=== PATIENT | male | born 1955 | race Caucasian/White ===

== ENCOUNTER → 2016-07-16 | Outpatient (CLI) | payer BC, OTHER ==
[~2016-07-16] MED LIST: ALLO300T2 PO; AMLO5TAB4 PO; ASPI81TA21 PO; ATOR-24 PO; CHOL20009 PO; GLUCTAB7 PO; LOSA100T65 PO; MELO7.5T5 PO; METF500T PO; OMEG10007 PO; OMEP20CA59 PO
[2016-07-16 14:31] LABS: ALT/SGPT 74 U/L (12-78); BLOOD UREA NITROGEN 14 mg/dl (7-18); BUN/CREATININE RATIO 16.8 (10-20); CALCIUM 9.5 mg/dl (8.5-10.1); CARBON DIOXIDE 24 mmol/L (21-32); CHLORIDE 101 mmol/L (98-107); CHOLESTEROL 253 mg/dl (0-200); CREATININE 0.82 mg/dl (0.60-1.40); GLUCOSE 185 mg/dl (70-99); POTASSIUM 4.1 mmol/L (3.5-5.1); SODIUM 136 mmol/L (136-145)
[2016-07-16 14:33] LABS: BASO % 0.6 %; BASO ABS # 0.03 K/uL (0-0.2); COMPLETE YES; EOS % 3.9 %; HEMATOCRIT 38.8 % (42-52); IG% 0.2 %; LYMPH % 16.6 %; LYMPH ABS # 0.84 K/uL (1.2-3.4); MEAN CELL VOLUME 91.3 fL (80-100); MEAN CORPUSCULAR HEMOGLOBIN 31.1 pg (25-34); MONO % 9.1 %; NEUT % 69.6 %; PLATELET COUNT 140 K/uL (130-400); RED BLOOD COUNT 4.25 M/uL (4.7-6.1); WHITE BLOOD COUNT 5.07 K/uL (4.8-10.8)
[2016-07-16 14:40] LABS: ESTIMATED AVERAGE GLUCOSE 146 mg/dl; HA1C FLAG Normal (Normal)
[2016-07-16 14:41] LABS: ALB/GLOB RATIO 1.3 (0.9-2); ALKALINE PHOSPHATASE 79 U/L (45-117); AST/SGOT 70 U/L (15-37); CHOLESTEROL/HDL RATIO 8.2; HDL CHOLESTEROL 31 mg/dl; TRIGLYCERIDES 1414 mg/dl (0-150)
== END | disposition home or self-care (01) ==
LOC: C.LABPBG 09:24
PROVIDERS: ATTEND Internal Medicine Geriatric Medicine
DX: M19.90 Unspecified osteoarthritis, unspecified site (principal); I10 Essential (primary) hypertension; E78.5 Hyperlipidemia, unspecified; D64.9 Anemia, unspecified; E55.9 Vitamin D deficiency, unspecified

== ENCOUNTER → 2017-06-06 | Outpatient (CLI) | payer OTHER ==
[2017-06-06 12:03] LABS: BASO ABS # 0.06 K/uL (0-0.2); COMPLETE YES; EOS % 2.9 %; HEMATOCRIT 39.8 % (42-52); IG% 0.3 %; LYMPH % 13.4 %; LYMPH ABS # 0.82 K/uL (1.2-3.4); MEAN CELL VOLUME 93.4 fL (80-100); MEAN CORPUSCULAR HEMOGLOBIN 31.7 pg (25-34); MEAN CORPUSCULAR HGB CONC 33.9 g/dl (32-36); MEAN PLATELET VOLUME 11.4 fL (7.4-10.4); MONO % 8.3 %; NEUT % 74.1 %; PLATELET COUNT 160 K/uL (130-400); RED BLOOD COUNT 4.26 M/uL (4.7-6.1); WHITE BLOOD COUNT 6.11 K/uL (4.8-10.8)
[2017-06-06 12:27] LABS: BLOOD UREA NITROGEN 16 mg/dl (7-18); BUN/CREATININE RATIO 17.7 (10-20); CALCIUM 9.2 mg/dl (8.5-10.1); CARBON DIOXIDE 24 mmol/L (21-32); CHLORIDE 102 mmol/L (98-107); GLUCOSE 239 mg/dl (70-99); POTASSIUM 4.2 mmol/L (3.5-5.1); SODIUM 134 mmol/L (136-145)
[2017-06-06 12:31] LABS: PROSTATE SPECIFIC ANTIGEN 0.867 ng/ml (0.000-4.000)
[2017-06-06 12:40] LABS: ESTIMATED AVERAGE GLUCOSE 154 mg/dl; HA1C FLAG Normal (Normal)
== END | disposition home or self-care (01) ==
LOC: C.LABPBG 10:10
PROVIDERS: ATTEND Internal Medicine Geriatric Medicine
DX: Z00.00 Encounter for general adult medical examination without abnormal findings (principal); I10 Essential (primary) hypertension; E78.5 Hyperlipidemia, unspecified; E11.9 Type 2 diabetes mellitus without complications

== ENCOUNTER 2018-07-15 11:08 | Inpatient (IN) ==
[2018-07-15] MEDS ORDERED: dilTIAZem HCl 5 MG/ML 5 ML VIAL IV STA (11:34)
[2018-07-15] MEDS ORDERED: dilTIAZem HCl 125 MG in DEXTROSE 5% 100 ML IV SCH ×2 (11:45→14:48)
[2018-07-15 11:50] LABS: Basophils # (auto) 0.03 K/uL (0-0.2); Basophils % (auto) 0.3 %; Eosinophils # (auto) 0.16 K/uL (0-0.5); Eosinophils % (auto) 1.6 %; Hematocrit (blood only) 39.5 % (42-52); Hemoglobin 13.4 g/dL (14.0-18.0); Immature Granulocytes # (auto) 0.03 K/uL (0.00-0.02); Immature Granulocytes % (auto) 0.3 %; Lymphocytes # (auto) 1.13 K/uL (1.2-3.4); Mean Corpuscular Hgb Conc 33.9 g/dL (32-36); Mean Corpuscular Volume 91.9 fL (80-100); Mean Platelet Volume 11.5 fL (7.4-10.4); Monocytes # (auto) 0.52 K/uL (0.11-0.59); Monocytes % (auto) 5.1 %; Neutrophils # (auto) 8.42 K/uL (1.4-6.5); Neutrophils % (auto) 81.7 %; Platelet Count 168 K/uL (130-400); RDW Coefficient of Variation 15.8 % (11.5-14.5); RDW Standard Deviation 52.9 fL (36.4-46.3); White Blood Count 10.29 K/uL (4.8-10.8)
--- NOTE | 2018-07-15 11:56 | XRay Report ---
XR chest 1V portable CLINICAL HISTORY: cough, sob dyspnea COMPARISON STUDY: No previous studies for comparison. FINDINGS: Moderate cardiomegaly. Prominent pulmonary vasculature. Diaphragms are smooth. Calcific angles are sharp. IMPRESSION: Mild congestive heart failure The above report was generated using voice recognition software. It may contain grammatical, syntax or spelling errors. Electronically signed by: Teodoro Majano M.D. 07/15/2018 11:54 AM
[2018-07-15 11:58] LABS: INR 1.1 (0.9-1.1); Partial Thromboplastin Time 27.1 Seconds (21.0-31.0); Prothrombin Time 10.8 Seconds (9.0-12.0)
[2018-07-15 12:04] LABS: BUN Creatinine Ratio 14.2 (10-20); Creatinine Clr Calc Pharmacy 101.6 ml/min; Est GFR (African American) 86.5; Est GFR (Non-African American) 74.7; Magnesium 1.8 mg/dl (1.8-2.4); Potassium 4.4 mmol/L (3.5-5.1)
[2018-07-15 12:21] LABS: Albumin Globulin Ratio 1.1 (0.9-2); Bilirubin,Total 1.4 mg/dl (0.2-1); Creatine Kinase MB 2.8 ng/ml (0.5-3.6); Globulin 3.6 gm/dl (2.5-4.0); Total Protein 7.6 gm/dl (6.4-8.2); Troponin I 0.08 ng/ml (0-0.045)
[2018-07-15] MEDS ORDERED: HEPARIN SOD (PORCINE) 1000 UNIT/ML 10 ML VIAL IV ONE (12:45)
[2018-07-15] MEDS ORDERED: HEPARIN STANDARD DEXTROSE 25,000 UNITS/500 ML IV SCH (12:48)
[2018-07-15] MEDS: HEPARIN STANDARD DEXTROSE 25,000 UNITS/500 ML IV SCH (12:56)
[2018-07-15] MEDS ORDERED: HEPARIN IV BOLUS 8,000 UNITS in SYRINGE 0 ML IV ONE (13:30)
--- NOTE | 2018-07-15 13:48 | History & Physical Report ---
Date of Service July 15, 2018 Assessment & Plan (1) Shortness of breath: 63 y/o M Hx HTN, HLD, DM II, gout, excess ETOH intake, GERD. Pt presents with a chief c/o SOB and chest tightness. He thought this might be due to a URI. He also reports a racing HR or palpitations intermittently for 2-3 months. On arrival to the ER, rapid flutter was noted on monitor. Initial labs are notable for a marginal troponin elevation. CXR is consistent with CHF. He denies CP, N/V, diaphoresis or lightheadedness. He is asymptomatic at rest at the time of admission and maintaining an adequate saturation on room air. 1) New flutter - may have been present for a few months intermittently. The pt is assigned to telemetry. He is placed on Diltiazem and Heparin. We ave ordered an echo and requested a cardiology consult. 2) CHF - clinically he is volume overloaded. We will provide a low dose of Lasix as this may help his SOB as we lower his HR. As above, an echo is ordered. We would currently presume that the overload is related to a persistetn rapid HR rather than a reduced EF. 3) elevated trop - likely again due to F and now CHF - trop will be trended and he is placed on full-dose anticoagulation, ASA, a statin. He states he had a normal stress a few yrs ago. he may benefit from an additional stress going forward. We will leave this to the discretio of cardiology at present. 4) DM II - placed on a SS 5) HTN/HLD - we are holding Losartan and Norvasc to allow for additional rate agents as needed. Will cont Atorvastatin. 6) Gout - cont Allopurinol Full code - full dose heparin Total time for this admit including review of labs, meds, imaging, records, EKG - discussion with pt and ER attending - 38 min Present on Admission?: Yes History of Present Illness Chief Complaint: Shortness of breath - palpitations Primary Care Provider: Wendi Alva, 63 y/o M Hx HTN, HLD, DM II, gout, excess ETOH intake, GERD. Pt presents with a chief c/o SOB and chest tightness. He thought this might be due to a URI. He also reports a racing HR or palpitations intermittently for 2-3 months. On arrival to the ER, rapid flutter was noted on monitor. Initial labs are notable for a marginal troponin elevation. CXR is consistent with CHF. He denies CP, N/V, diaphoresis or lightheadedness. He is asymptomatic at rest at the time of admission and maintaining an adequate saturation on room air. PMH: 1) HTN 2) HLD 3) Gout 4) B12 deficiency 5) GERD 6) DM II 7) Obese Surgical: limited to an appendectomy Social: 49 + pack history. Quit smoking 20 yrs ago. Drinks 5-10 beers daily. 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 Family: Father with history of CVA Mother with history of CAD/stents Allergies Allergy/AdvReac Type Severity Reaction Status Date / Time No Known Allergies Allergy Unverified 03/19/16 11:24 Home Medications Home Medications Medication Instructions Recorded Confirmed Type Dayquil 1 dose PO DAILY PRN 07/15/18 History allopurinol 300 mg PO DAILY 07/15/18 07/15/18 History amlodipine 5 mg PO DAILY 07/15/18 07/15/18 History aspirin 81 mg PO DAILY 07/15/18 07/15/18 History atorvastatin 40 mg PO DAILY 07/15/18 07/15/18 History cholecalciferol (vitamin D3) 0 unit PO 07/15/18 History [Vitamin D3] cyanocobalamin (vitamin B-12) 0 mcg PO 07/15/18 History [Vitamin B-12] glucosamine sulfate [Glucosamine] 500 mg PO TID 07/15/18 07/15/18 History guaifenesin [Mucinex] 600 mg PO Q12H PRN 07/15/18 07/15/18 History losartan 100 mg PO DAILY 07/15/18 07/15/18 History meloxicam 7.5 mg PO DAILY 07/15/18 07/15/18 History metformin 1 tab PO AMHS 07/15/18 07/15/18 History omega-3 fatty acids-fish oil [Fish 1 cap PO DAILY 07/15/18 07/15/18 History Oil] omeprazole 20 mg PO DAILY 07/15/18 07/15/18 History Past Med/Surg History Medical History Diabetes (Chronic) Hypercholesterolemia (Chronic) Hypertension (Chronic) Social History Current Living Situation: Significant Other Other Information That Helps Us Care for You: No Feels Safe at Home: Yes Safety Concerns: Feels Safe At This Time Smoking Status: Former smoker Hx Alcohol Use: No Hx Substance Use: No Beliefs That Will Affect Care: None Preferred Language: [place] Communication Ability: Effective Physical Exam 2 Vital Signs (Past 24 Hours): Last Vital Signs Temp 36.4 C L 07/15/18 11:11 Pulse 95 H 07/15/18 13:16 Resp 20 07/15/18 13:16 BP 129/96 07/15/18 13:16 Pulse Ox 93 07/15/18 13:16 Results & Data Diagnostic Findings CXR: vascular comgestion EKG: Flutter - variable rate with 2/1 block
[2018-07-15] MEDS ORDERED: ZOLPIDEM TARTRATE 5 MG TAB PO PRN (14:48)
[2018-07-15] MEDS ORDERED: MAGNESIUM HYDROXIDE SUSP 30 ML UDC PO PRN (14:48)
[2018-07-15] MEDS ORDERED: ONDANSETRON INJ 2 MG/ML 2 ML VIAL IV PRN (14:48)
[2018-07-15] MEDS ORDERED: POLYETHYLENE (MIRALAX) 17 GM PACK PO PRN (14:48)
[2018-07-15] MEDS ORDERED: NITROGLYCERIN SL 0.4 MG/TAB TAB SL PRN (14:48)
[2018-07-15] MEDS ORDERED: MoRPHine SULFATE 2 MG/ML CARP IV PRN (14:48)
[2018-07-15] MEDS ORDERED: ALUMINUM/MAGNESIUM SUSP 30 ML UDC PO PRN (14:48)
[2018-07-15] MEDS ORDERED: Heparin IV Standard *NO* Bolus ONE (14:48)
[2018-07-15] MEDS ORDERED: GLUCOSE 10 TABS/TUBE PO PRN (14:57)
[2018-07-15] MEDS ORDERED: CARBOHYDRATES FOR HYPOGLYCEMIA PO PRN (14:57)
[2018-07-15] MEDS ORDERED: GLUCAGON FOR INJ 1 MG VIAL IM PRN (14:57)
[2018-07-15] MEDS ORDERED: GLUCOSE 40% GEL 15 GM TUBE PO PRN (14:57)
[2018-07-15] MEDS ORDERED: DEXTROSE 50% 50 ML SYRINGE IV PRN (14:57)
[2018-07-15] MEDS ORDERED: LORazepam 1 MG/2 ML VIAL IV PRN (15:43)
[2018-07-15] MEDS ORDERED: FUROSEMIDE 20 MG in SYRINGE 0 ML IV ONE (16:45)
[2018-07-15] MEDS: THIAMINE HCL 100 MG TAB PO SCH (17:01)
[2018-07-15] MEDS: FOLIC ACID 1 MG TAB PO SCH (17:01)
[2018-07-15] MEDS: INSULIN ASPART 100 UNITS/ML 3 ML PEN SC SCH ×2 (17:02→22:09)
[2018-07-15 18:00] LABS: Influenza A virus by PCR Neg for Influ A (Neg); Influenza B virus by PCR Neg for Influ B (Neg)
--- NOTE | 2018-07-15 18:03 | Cardiology Consultation ---
Date of Consultation July 15, 2018 Assessment & Plan (1) Atrial flutter with rapid ventricular response: He presents with atrial flutter with a rapid heart rate, he is somewhat symptomatic but has felt run down since and is not seen a medical professional. He may have had this arrhythmia for that long, I suspect he has had it for longer than his recent worsening of shortness of breath which probably correlates with his heart failure. We need to get better rate control and I am going to increase his diltiazem, we also need to have him on an anticoagulant. He is currently on heparin, I would transition him to an oral anticoagulant fairly quickly but will leave him on heparin until workup is complete. I would favor Eliquis 5 mg twice daily.. (2) Elevated troponin I level: He does have an elevated troponin, it is most likely demand ischemia on the basis of his rapid heart rate however he may have underlying coronary artery disease. He does have coronary risk factors. I would continue to trend the troponins. In view of his chest discomfort (which is somewhat atypical but worrisome nevertheless) we may want to consider stress testing at some point. I would not consider catheterization as yet, echo pending. (3) Shortness of breath: He has had worsening of his shortness of breath recently but has felt run down since . He appears to be in mild congestive heart failure now. That could be on the basis of the arrhythmia and fluid retention or he may have a cardiomyopathy. He will need an echocardiogram to determine. I agree with diuresis. History of Present Illness Reason for Consultation: Atrial fibrillation, rapid heart rate, elevated troponin Attending Physician: Vipul Castillo MD History of Present Illness This is a very pleasant 63-year-old male who does have a history of hypertension , diabetes mellitus and GERD. He actually has not been feeling well since somewhere around , he has been feeling run down and lacking in energy but is not been having much in way of palpitations until recently. More recently he has developed shortness of breath and chest heaviness as well as palpitations and a rapid heart rate which has been more prominent over the last week or so. He came into the emergency room where he was noted to have atrial fibrillation with a rapid heart rate. He does have a history of alcohol use as well. He feels better now, he is no longer aware of his heart rate (although it is still somewhat elevated) and he has not had lightheadedness or dizziness. He is not having difficulty with chest tightness now. Allergies Allergy/AdvReac Type Severity Reaction Status Date / Time No Known Allergies Allergy Unverified 03/19/16 11:24 Home Medications Home Medications Medication Instructions Recorded Confirmed Type Dayquil 1 dose PO DAILY PRN 07/15/18 History allopurinol 300 mg PO DAILY 07/15/18 07/15/18 History amlodipine 5 mg PO DAILY 07/15/18 07/15/18 History aspirin 81 mg PO DAILY 07/15/18 07/15/18 History atorvastatin 40 mg PO DAILY 07/15/18 07/15/18 History cholecalciferol (vitamin D3) 0 unit PO 07/15/18 History [Vitamin D3] cyanocobalamin (vitamin B-12) 0 mcg PO 07/15/18 History [Vitamin B-12] glucosamine sulfate [Glucosamine] 500 mg PO TID 07/15/18 07/15/18 History guaifenesin [Mucinex] 600 mg PO Q12H PRN 07/15/18 07/15/18 History losartan 100 mg PO DAILY 07/15/18 07/15/18 History meloxicam 7.5 mg PO DAILY 07/15/18 07/15/18 History metformin 1 tab PO AMHS 07/15/18 07/15/18 History omega-3 fatty acids-fish oil [Fish 1 cap PO DAILY 07/15/18 07/15/18 History Oil] omeprazole 20 mg PO DAILY 07/15/18 07/15/18 History Patient History Medical History Diabetes (Chronic) Hypercholesterolemia (Chronic) Hypertension (Chronic) Social History Current Living Situation: Significant Other Other Information That Helps Us Care for You: No Feels Safe at Home: Yes Safety Concerns: Feels Safe At This Time Smoking Status: Former smoker Hx Alcohol Use: No Hx Substance Use: No Beliefs That Will Affect Care: None Preferred Language: Dutch Communication Ability: Effective Review of Systems Negative for lightheadedness, dizziness, presyncope or syncope. Palpitations and elevated heart rate as noted above. Moderate and progressive exertional dyspnea, atypical chest pain. No orthopnea or PND or peripheral edema. No GI complaints, no bleeding. No neurologic complaints such as TIA or stroke symptoms. Other systems negative. Physical Exam 2 Vital Signs (Past 24 Hours): Last Vital Signs Temp 36.7 C 07/15/18 15:37 Pulse 99 H 07/15/18 15:37 Resp 18 07/15/18 15:37 BP 127/86 07/15/18 15:37 Pulse Ox 93 07/15/18 15:37 Physical Exam: Constitutional: Alert, cooperative and in no distress. HEENT: Unremarkable Neck: No jugular venous distention, carotid pulses are irregular but otherwise normal and equal bilaterally without bruits. Pulmonary: Crackles at bases bilaterally. Cardiac: Irregular rhythm with no murmur, gallop or rub. Abdomen: Soft, nontender with normal bowel sounds. Extremities: No edema. Distal pulses intact. Neurologic: No focal findings. Gait is steady. Skin: No rash, ecchymoses or petechiae. Results & Data Diagnostic Findings ECG: On admission atrial flutter with a rapid ventricular response, rate 129 bpm Telemetry: Overall a rapid heart rate, slightly improved on intravenous diltiazem but still in the 110-120 bpm range Chest x-ray: Consistent with mild CHF
[2018-07-15] MEDS: dilTIAZem HCl 125 MG in DEXTROSE 5% 100 ML IV SCH ×2 (18:56→23:34)
--- NOTE | 2018-07-15 19:18 | Emergency Department Note ---
Entered by Hubert Bal acting as a scribe for Jorge Greenwood MD ED Provider Note CHIEF COMPLAINT: Shortness of breath/dyspnea HISTORY OF PRESENT ILLNESS: The patient is a 63 year old male who presents to the Emergency Room with complaints of worsening shortness of breath and dyspnea over the past week. The patient reports that he has been experiencing shortness of breath for about two months, but this week it has worsened. He reports that he has a productive cough , congestion, tightness in his chest and his heart occasionally races which he has experienced before. The patient also admits to experiencing fever, sweats, chills, and increased tiredness. He states that he has taken Dayquil and mucinex which alleviated some of his symptoms. The patient states that walking does not worsen his symptoms. He does report a family history of coronary disease. The patient reports he has a history of hypertension, high cholesterol , and diabetes and states he is on medication for all three. Pt denies LOC, headache, visual changes, neck pain, chest pain, nausea, vomiting , abdominal pain, back pain, melena, hematochezia, urinary symptoms, numbness, weakness, lymphadenopathy, rash, or other complaints. REVIEW OF SYSTEMS: See HPI for pertinent positives and negatives. A total of ten systems were reviewed and were otherwise negative. PMHx/PSHx: Hypertension, hypercholesterolemia, diabetes. SOCIAL HISTORY: Patient lives at home. PHYSICAL EXAM: GENERAL: Awake, alert, well-appearing, in no distress HENT: Normocephalic, atraumatic. Oropharynx unremarkable. EYES: Normal conjunctiva. Sclera non-icteric. NECK: Inspection normal. Non-tender. Supple. No nuchal rigidity. FROM. No masses. RESPIRATORY: Clear to auscultation. No wheezes. No rales. Normal respiratory effort. CARDIAC: Irregular and tachycardic. No murmurs. No rubs. Extremities warm and well perfused. Pulses equal. No JVD. GI: Soft, non-distended. No tenderness to palpation. No rebound or guarding. No masses. RECTAL: Deferred. MUSCULOSKELETAL: Atraumatic. Chest examination reveals no tenderness. The back is symmetrical on inspection without obvious abnormality. There is no CVA tenderness to palpation. No joint edema. LOWER EXTREMITIES: Calves are equal size bilaterally and non-tender. No edema. No discoloration. NEURO: Normal sensorium. No sensory or motor deficits noted. SKIN: No rash or jaundice noted. EMERGENCY DEPARTMENT COURSE: 1126: Past medical records reviewed. The patient was evaluated in room B10, and a complete history and physical examination were performed. 1416: I reviewed the patient's case with Dr. Castillo, [facility] Hospitalist. He will evaluate the patient for further management. MEDICAL DECISION MAKING: Triage Nursing notes reviewed and agree them. Additional history obtained from the family. The patient's history was concerning for shortness of breath. Differential diagnosis: Etiologies such as pneumonia, COPD, reactive airway disease, CHF, cardiac ischemia, pulmonary embolism, pneumothorax, musculoskeletal, infections, gastrointestinal, as well as others were entertained. Physical examination: As above. Tachycardia noted. ER treatment provided: IV Cardizem bolus and drip IV heparin On reassessment the patient felt better. Rate control achieved. The patient was still in a flutter. Diagnostic interpretation by me: The electrocardiogram consistent with rapid a flutter. The labs revealed an unremarkable CBC and chemistry panel. The patient had an elevated troponin. Imaging studies: Chest x-ray performed and revealed some mild congestive change. Consultation: A consultation was placed with the hospitalist. The case was discussed and diagnostics were reviewed. The patient was evaluated in the ER for further treatment. IMPRESSION: Atrial flutter with RVR, elevated troponin, CHF. PLAN: Admitted. CRITICAL CARE: I have personally spent greater than 30 minutes of critical care time in the direct management of this patient. This includes bedside care, interpretation of diagnostic studies, and testing, discussion with consultants, patient, and family members, and other required patient management activities. These minutes are in excess of all separately billable procedures. Impression & Plan Atrial flutter with rapid ventricular response, Elevated troponin I level Past Med/Surg History Medical History Diabetes (Chronic) Hypercholesterolemia (Chronic) Hypertension (Chronic) Social History Current Living Situation: Significant Other Other Information That Helps Us Care for You: No Feels Safe at Home: Yes Safety Concerns: Feels Safe At This Time Smoking Status: Former smoker Hx Alcohol Use: No Hx Substance Use: No Beliefs That Will Affect Care: None Preferred Language: Hungarian Communication Ability: Effective Results & Data Vital Signs Vital Signs - 24 hr 07/15/18 11:11 07/15/18 11:31 07/15/18 11:42 Temperature 36.4 C L Temperature Source Oral Sepsis Recent Fever Within 48 Hours No Sepsis New/Unexplained Change in Mental Status No Sepsis Action Taken by Nursing No Action Required Pulse Rate 129 H 125 H Pulse Rate [Left Finger] Pulse Rhythm [Left Finger] Pulse Strength [Left Finger] Respiratory Rate 20 14 Respiratory Effort / Characteristics Non-Labored Spontaneous Non-Labored Spontaneous Respiratory Depth Normal Normal Respiratory Pattern Regular Regular Blood Pressure 147/100 H 138/99 Blood Pressure [Left Arm] Blood Pressure Mean 115 112 Blood Pressure Mean [Left Arm] Blood Pressure Position [Left Arm] Pulse Oximetry 97 94 Pulse Oximetry [Left Index Finger] Oxygen Delivery Method Room Air Room Air Oxygen Delivery Method [Left Index Finger] 07/15/18 12:01 07/15/18 12:15 07/15/18 12:16 Temperature Temperature Source Sepsis Recent Fever Within 48 Hours Sepsis New/Unexplained Change in Mental Status Sepsis Action Taken by Nursing Pulse Rate 101 H 101 H 106 H Pulse Rate [Left Finger] Pulse Rhythm [Left Finger] Pulse Strength [Left Finger] Respiratory Rate 15 14 16 Respiratory Effort / Characteristics Respiratory Depth Respiratory Pattern Blood Pressure 124/85 114/84 Blood Pressure [Left Arm] Blood Pressure Mean 98 94 Blood Pressure Mean [Left Arm] Blood Pressure Position [Left Arm] Pulse Oximetry 93 93 93 Pulse Oximetry [Left Index Finger] Oxygen Delivery Method Oxygen Delivery Method [Left Index Finger] 07/15/18 12:30 07/15/18 12:46 07/15/18 13:01 Temperature Temperature Source Sepsis Recent Fever Within 48 Hours Sepsis New/Unexplained Change in Mental Status Sepsis Action Taken by Nursing Pulse Rate 95 H 99 H 99 H Pulse Rate [Left Finger] Pulse Rhythm [Left Finger] Pulse Strength [Left Finger] Respiratory Rate 14 15 12 Respiratory Effort / Characteristics Respiratory Depth Respiratory Pattern Blood Pressure 128/87 122/89 118/90 Blood Pressure [Left Arm] Blood Pressure Mean 100 100 99 Blood Pressure Mean [Left Arm] Blood Pressure Position [Left Arm] Pulse Oximetry 95 95 93 Pulse Oximetry [Left Index Finger] Oxygen Delivery Method Room Air Room Air Room Air Oxygen Delivery Method [Left Index Finger] 07/15/18 13:10 07/15/18 13:16 07/15/18 13:31 Temperature Temperature Source Sepsis Recent Fever Within 48 Hours Sepsis New/Unexplained Change in Mental Status Sepsis Action Taken by Nursing Pulse Rate 95 H 97 H Pulse Rate [Left Finger] Pulse Rhythm [Left Finger] Pulse Strength [Left Finger] Respiratory Rate 20 17 Respiratory Effort / Characteristics Non-Labored Spontaneous Respiratory Depth Normal Respiratory Pattern Regular Blood Pressure 129/96 143/109 H Blood Pressure [Left Arm] Blood Pressure Mean 107 120 Blood Pressure Mean [Left Arm] Blood Pressure Position [Left Arm] Pulse Oximetry 93 93 Pulse Oximetry [Left Index Finger] Oxygen Delivery Method Room Air Room Air Oxygen Delivery Method [Left Index Finger] 07/15/18 13:46 07/15/18 14:01 07/15/18 14:16 Temperature Temperature Source Sepsis Recent Fever Within 48 Hours Sepsis New/Unexplained Change in Mental Status Sepsis Action Taken by Nursing Pulse Rate 93 H 100 H 100 H Pulse Rate [Left Finger] Pulse Rhythm [Left Finger] Pulse Strength [Left Finger] Respiratory Rate 16 13 13 Respiratory Effort / Characteristics Respiratory Depth Respiratory Pattern Blood Pressure 130/96 133/101 H 133/101 H Blood Pressure [Left Arm] Blood Pressure Mean 107 111 Blood Pressure Mean [Left Arm] Blood Pressure Position [Left Arm] Pulse Oximetry 93 94 94 Pulse Oximetry [Left Index Finger] Oxygen Delivery Method Room Air Oxygen Delivery Method [Left Index Finger] 07/15/18 14:28 07/15/18 14:48 07/15/18 14:52 Temperature 36.4 C L Temperature Source Oral Sepsis Recent Fever Within 48 Hours Sepsis New/Unexplained Change in Mental Status Sepsis Action Taken by Nursing Pulse Rate Pulse Rate [Left Finger] 118 H Pulse Rhythm [Left Finger] Regular Pulse Strength [Left Finger] Normal Respiratory Rate 16 Respiratory Effort / Characteristics Non-Labored Non-Labored Spontaneous Respiratory Depth Normal Normal Respiratory Pattern Regular Regular Blood Pressure Blood Pressure [Left Arm] 156/102 H Blood Pressure Mean Blood Pressure Mean [Left Arm] 120 Blood Pressure Position [Left Arm] Sitting Pulse Oximetry 95 Pulse Oximetry [Left Index Finger] 95 Oxygen Delivery Method Room Air Room Air Oxygen Delivery Method [Left Index Finger] Room Air 07/15/18 15:37 Temperature 36.7 C Temperature Source Oral Sepsis Recent Fever Within 48 Hours Sepsis New/Unexplained Change in Mental Status Sepsis Action Taken by Nursing Pulse Rate Pulse Rate [Left Finger] 99 H Pulse Rhythm [Left Finger] Pulse Strength [Left Finger] Respiratory Rate 18 Respiratory Effort / Characteristics Respiratory Depth Respiratory Pattern Blood Pressure Blood Pressure [Left Arm] 127/86 Blood Pressure Mean Blood Pressure Mean [Left Arm] 99 Blood Pressure Position [Left Arm] Lying Pulse Oximetry 93 Pulse Oximetry [Left Index Finger] Oxygen Delivery Method Room Air Oxygen Delivery Method [Left Index Finger] Home Medications Current Medication List: was personally reviewed by me Laboratory Data Attestation: I reviewed the patient's lab results. Result diagrams: 07/15/18 11:30 07/15/18 11:30 Lab Results 07/15/18 07/15/18 07/15/18 Range/Units 11:30 11:30 11:30 WBC 10.29 (4.8-10.8) K/uL RBC 4.30 L (4.7-6.1) M/uL Hgb 13.4 L (14.0-18.0) g/dL Hct 39.5 L (42-52) % MCV 91.9 (80-100) fL MCH 31.2 (25-34) pg MCHC 33.9 (32-36) g/dL RDW Std Deviation 52.9 H (36.4-46.3) fL RDW Coeff of Jer 15.8 H (11.5-14.5) % Plt Count 168 (130-400) K/uL MPV 11.5 H (7.4-10.4) fL Immature Gran % (Auto) 0.3 % Neut % (Auto) 81.7 % Lymph % (Auto) 11.0 % [place] % (Auto) 5.1 % Eos % (Auto) 1.6 % Baso % (Auto) 0.3 % Immature Gran # (Auto) 0.03 H (0.00-0.02) K/uL Neut # (Auto) 8.42 H (1.4-6.5) K/uL Lymph # (Auto) 1.13 L (1.2-3.4) K/uL [place] # (Auto) 0.52 (0.11-0.59) K/uL Eos # (Auto) 0.16 (0-0.5) K/uL Baso # (Auto) 0.03 (0-0.2) K/uL PT 10.8 (9.0-12.0) Seconds INR 1.1 (0.9-1.1) APTT 27.1 (21.0-31.0) Seconds PTT Ratio 1.0 Sodium 133 L (136-145) mmol/L Potassium 4.4 (3.5-5.1) mmol/L Chloride 104 (98-107) mmol/L Carbon Dioxide 25 (21-32) mmol/L Anion Gap 4.0 (3-11) BUN 15 (7-18) mg/dl Creatinine 1.05 (0.6-1.4) mg/dl Est Cr Clr Drug Dosing 101.6 ml/min Est GFR ( Amer) 86.5 Est GFR (Non-Af Amer) 74.7 BUN/Creatinine Ratio 14.2 (10-20) Glucose 268 H (70-99) mg/dl POC Glucose (70-99) Calcium 9.0 (8.5-10.1) mg/dl Magnesium 1.8 (1.8-2.4) mg/dl Total Bilirubin 1.4 H (0.2-1) mg/dl AST 29 (15-37) U/L ALT 47 (12-78) U/L Alkaline Phosphatase 86 (45-117) U/L Total Creatine Kinase 118 (39-308) U/L CK-MB (CK-2) 2.8 (0.5-3.6) ng/ml CK/CKMB % Calc 2.4 (0-3.0) Troponin I 0.080 H* (0-0.045) ng/ml Total Protein 7.6 (6.4-8.2) gm/dl Albumin 4.0 (3.4-5.0) gm/dl Globulin 3.6 (2.5-4.0) gm/dl Albumin/Globulin Ratio 1.1 (0.9-2) TSH 1.760 (0.300-4.500) uIu/ml Influenza Type A (PCR) (Neg) Influenza Type B (PCR) (Neg) 07/15/18 07/15/18 07/15/18 Range/Units 15:18 16:52 17:20 WBC (4.8-10.8) K/uL RBC (4.7-6.1) M/uL Hgb (14.0-18.0) g/dL Hct (42-52) % MCV (80-100) fL MCH (25-34) pg MCHC (32-36) g/dL RDW Std Deviation (36.4-46.3) fL RDW Coeff of Jer (11.5-14.5) % Plt Count (130-400) K/uL MPV (7.4-10.4) fL Immature Gran % (Auto) % Neut % (Auto) % Lymph % (Auto) % [place] % (Auto) % Eos % (Auto) % Baso % (Auto) % Immature Gran # (Auto) (0.00-0.02) K/uL Neut # (Auto) (1.4-6.5) K/uL Lymph # (Auto) (1.2-3.4) K/uL [place] # (Auto) (0.11-0.59) K/uL Eos # (Auto) (0-0.5) K/uL Baso # (Auto) (0-0.2) K/uL PT (9.0-12.0) Seconds INR (0.9-1.1) APTT (21.0-31.0) Seconds PTT Ratio Sodium (136-145) mmol/L Potassium (3.5-5.1) mmol/L Chloride (98-107) mmol/L Carbon Dioxide (21-32) mmol/L Anion Gap (3-11) BUN (7-18) mg/dl Creatinine (0.6-1.4) mg/dl Est Cr Clr Drug Dosing ml/min Est GFR ( Amer) Est GFR (Non-Af Amer) BUN/Creatinine Ratio (10-20) Glucose (70-99) mg/dl POC Glucose 218 H (70-99) Calcium (8.5-10.1) mg/dl Magnesium (1.8-2.4) mg/dl Total Bilirubin (0.2-1) mg/dl AST (15-37) U/L ALT (12-78) U/L Alkaline Phosphatase (45-117) U/L Total Creatine Kinase (39-308) U/L CK-MB (CK-2) (0.5-3.6) ng/ml CK/CKMB % Calc (0-3.0) Troponin I 0.090 H* (0-0.045) ng/ml Total Protein (6.4-8.2) gm/dl Albumin (3.4-5.0) gm/dl Globulin (2.5-4.0) gm/dl Albumin/Globulin Ratio (0.9-2) TSH (0.300-4.500) uIu/ml Influenza Type A (PCR) Neg for Influ A (Neg) Influenza Type B (PCR) Neg for Influ B (Neg) Administered Medications Folic Acid (Folvite) 1 mg PO [facility] Stop: 08/14/18 15:59 Last Admin: 07/15/18 17:01 Dose: 1 mg Heparin Sodium/Dextrose (Heparin Sodium/Dextrose) 25,000 units in 500 mls @ 36 mls/hr IV .[id number] [facility]; Protocol Stop: 08/14/18 12:45 Last Admin: 07/15/18 12:56 Dose: 1,800 units/hr, 36 mls/hr Diltiazem HCl 125 mg/ Dextrose 125 mls @ 5 mls/hr IV .Q24H [facility]; Protocol Stop: 08/14/18 17:44 Last Admin: 07/15/18 18:56 Dose: 15 mg/hr, 15 mls/hr Insulin Aspart (Novolog Flexpen) [address] [facility] Stop: 08/14/18 16:29 Last Admin: 07/15/18 17:02 Dose: 2 units Thiamine HCl (Vitamin B-1) 100 mg PO [facility] Stop: 08/14/18 15:59 Last Admin: 07/15/18 17:01 Dose: 100 mg Discontinued Medications Diltiazem HCl (Cardizem) 10 mg IV NOW STA Stop: 07/15/18 11:35 Last Admin: 07/15/18 11:49 Dose: 10 mg Heparin Sodium (Porcine) (Heparin Iv Bolus) 8,000 units IV NOW ONE Stop: 07/15/18 12:46 Last Admin: 07/15/18 12:55 Dose: 8,000 units Heparin Sodium/Dextrose () 1 ea N/A NOW STA; Protocol Stop: 07/15/18 12:42 Last Admin: 07/15/18 16:46 Dose: Not Given Diltiazem HCl 125 mg/ Dextrose 125 mls @ 5 mls/hr IV .Q24H [facility]; Protocol Stop: 08/14/18 11:44 Last Titration: 07/15/18 16:47 Dose: 0 mg/hr, 0 mls/hr Titration: 07/15/18 16:47 Dose: 0 mg/hr, 0 mls/hr Admin: 07/15/18 11:50 Dose: 5 mg/hr, 5 mls/hr Diltiazem HCl 125 mg/ Dextrose 125 mls @ 10 mls/hr IV .[id number] [facility]; Protocol Stop: 08/14/18 14:47 Last Admin: 07/15/18 16:10 Dose: 10 mg/hr, 10 mls/hr Furosemide 20 mg/ Syringe 2 mls @ 4 mls/min IV TODAY@1645 ONE Stop: 07/15/18 16:46 Last Admin: 07/15/18 17:01 Dose: 4 mls/min Imaging Data Radiologist's Impression: Radiology results as stated below per my review and the radiologist's interpretation: XR chest 1V portable CLINICAL HISTORY: cough, sob dyspnea COMPARISON STUDY: No previous studies for comparison. FINDINGS: Moderate cardiomegaly. Prominent pulmonary vasculature. Diaphragms are smooth. Calcific angles are sharp. IMPRESSION: Mild congestive heart failure The above report was generated using voice recognition software. It may contain grammatical, syntax or spelling errors. Electronically signed by: Teodoro Majano M.D. 07/15/2018 11:54 AM ECG Data Attestation: I personally reviewed and interpreted this ECG as follows: Indication: SOB/dyspnea Rate (beats per minute): 120 Rhythm: atrial flutter (with cariable block at 125) Findings: no nonspecific-ST abn, no PVC and no ST elevation Blood Pressure Blood Pressure Findings: Normal blood pressure Blood Pressure Disposition: did not require urgent referral Discharge Plan Visit Data *Final* Discharge Date/Time: 07/15/18 14:16 Chief Complaint: Shortness of Breath/Dyspnea Stated Complaint: SOB ED Provider: Jorge Greenwood Discharge Problem: Atrial flutter with rapid ventricular response, Elevated troponin I level Patient Disposition: Admitted As Inpatient Discharge Instructions Interventions: ED Discharge Assessment Last Done: 07/15/18 14:16 The scribe's documentation has been prepared under my direction and personally reviewed by me in its entirety. I confirm that the note above accurately reflects all work, treatment, procedures, and medical decision making performed by me.
[2018-07-15 19:22] LABS: Partial Thromboplastin Ratio 2.8
[2018-07-15 19:39] LABS: Partial Thromboplastin Time 73.8 Seconds (21.0-31.0)
[2018-07-15] MEDS: ACETAMINOPHEN 325 MG TAB PO PRN (22:07)
[2018-07-16 02:10] LABS: Basophils # (auto) 0.05 K/uL (0-0.2); Basophils % (auto) 0.6 %; Eosinophils # (auto) 0.23 K/uL (0-0.5); Eosinophils % (auto) 2.8 %; Hematocrit (blood only) 38.1 % (42-52); Hemoglobin 12.9 g/dL (14.0-18.0); Immature Granulocytes # (auto) 0.02 K/uL (0.00-0.02); Immature Granulocytes % (auto) 0.2 %; Lymphocytes # (auto) 1.86 K/uL (1.2-3.4); Lymphocytes % (auto) 22.4 %; Mean Corpuscular Hgb Conc 33.9 g/dL (32-36); Mean Corpuscular Volume 91.6 fL (80-100); Mean Platelet Volume 11.9 fL (7.4-10.4); Monocytes # (auto) 0.56 K/uL (0.11-0.59); Monocytes % (auto) 6.8 %; Neutrophils # (auto) 5.57 K/uL (1.4-6.5); Neutrophils % (auto) 67.2 %; Platelet Count 165 K/uL (130-400); RDW Coefficient of Variation 15.9 % (11.5-14.5); RDW Standard Deviation 52.7 fL (36.4-46.3); Red Blood Count 4.16 M/uL (4.7-6.1); White Blood Count 8.29 K/uL (4.8-10.8)
[2018-07-16 02:25] LABS: Partial Thromboplastin Ratio 2.3
[2018-07-16 02:26] LABS: Partial Thromboplastin Time 58.7 Seconds (21.0-31.0)
[2018-07-16 02:39] LABS: BUN Creatinine Ratio 15.5 (10-20); Calcium 8.7 mg/dl (8.5-10.1); Creatinine Clr Calc Pharmacy 106.3 ml/min; Est GFR (African American) 91.8; Est GFR (Non-African American) 79.2; Magnesium 1.7 mg/dl (1.8-2.4); Potassium 3.5 mmol/L (3.5-5.1)
[2018-07-16] MEDS: HEPARIN STANDARD DEXTROSE 25,000 UNITS/500 ML IV SCH ×2 (03:54→18:10)
[2018-07-16] MEDS: THIAMINE HCL 100 MG TAB PO SCH (08:39)
[2018-07-16] MEDS: FOLIC ACID 1 MG TAB PO SCH (08:39)
[2018-07-16] MEDS: ASPIRIN 81 MG ECTAB PO SCH (08:39)
[2018-07-16] MEDS: INSULIN ASPART 100 UNITS/ML 3 ML PEN SC SCH ×4 (08:43→20:50)
[2018-07-16] MEDS ORDERED: ASPIRIN 81 MG ECTAB PO SCH (09:00)
[2018-07-16] MEDS: ATORVASTATIN 40 MG TAB PO SCH (09:49)
[2018-07-16] MEDS: MELOXICAM 7.5 MG TAB PO SCH (09:50)
[2018-07-16] MEDS: GLUCOSAMINE SULFATE 500 MG CAP PO SCH ×3 (09:50→20:49)
[2018-07-16] MEDS: ALLOPURINOL 300 MG TAB PO SCH (09:50)
[2018-07-16] MEDS: PANTOprazole 40 MG TAB PO SCH (09:51)
--- NOTE | 2018-07-16 11:05 | Cardiology Progress Note ---
Date of Service July 16, 2018 Assessment & Plan (1) Atrial flutter with rapid ventricular response: He presents with atrial flutter with a rapid heart rate, he is somewhat symptomatic but has felt run down since and had not seen a medical professional. He may have had this arrhythmia for that long, I suspect he has had it for longer than his recent worsening of shortness of breath which probably correlates with his heart failure. He is still on a diltiazem drip and received metoprolol succinate this morning, his heart rate is well controlled now. He is currently on heparin, I would transition him to an oral anticoagulant fairly quickly but will leave him on heparin until workup is complete. I would favor Eliquis as an oral anticoagulant. (2) Elevated troponin I level: He does have an elevated troponin, it is most likely demand ischemia on the basis of his rapid heart rate however the pattern is little bit worrisome for underlying coronary artery disease. He does have coronary risk factors. In view of his chest discomfort (which is somewhat atypical but worrisome nevertheless) and his somewhat unusual troponin trend (with an increase despite rate control and blood pressure control although the level was not terribly high ) I think a catheterization is warranted as I suspect he has significant underlying coronary disease. I discussed this with him and he is agreeable. We will try to set that up for this afternoon. (3) Shortness of breath: He has had worsening of his shortness of breath recently but has felt run down since . He appears to be in mild congestive heart failure now. That could be on the basis of the arrhythmia and fluid retention or he may have a cardiomyopathy. He had an echocardiogram but the result is pending. I agree with diuresis. Subjective He feels better today, although he is still having little shortness of breath. No palpitations. Physical Exam 2 Vital Signs (Past 24 Hours): Last Vital Signs Temp 36.4 C L 07/16/18 06:33 Pulse 71 07/16/18 06:33 Resp 17 07/16/18 06:33 BP 122/80 07/16/18 06:33 Pulse Ox 90 07/16/18 06:33 Physical Exam: Constitutional: Alert, cooperative and in no distress. Pulmonary: Clear to auscultation bilaterally. Cardiac: Irregular rhythm with no murmur, gallop or rub. Abdomen: Soft, nontender with normal bowel sounds. Extremities: No edema. Skin: No rash, ecchymoses or petechiae. Results & Data Diagnostic Findings Telemetry: He remains in atrial flutter, however his rate is well controlled on his current regimen. Electrocardiogram: His ECG this morning does not show any acute change. T wave abnormalities are little bit difficult to discern due to his atrial flutter.
[2018-07-16] MEDS: ACETAMINOPHEN 325 MG TAB PO PRN (15:35)
--- NOTE | 2018-07-16 18:33 | Family Medicine Progress Note ---
Date of Service July 16, 2018 Assessment & Plan (1) Atrial flutter with rapid ventricular response: Mr. Kaur is a 63-year-old male with a past medical history of hypertension, hyperlipidemia, type 2 diabetes mellitus, gout, GERD, 5-10 beer per day alcohol intake who presents with 2-3 months of racing heartbeat and new shortness of breath and chest tightness without chest pain. He was in atrial flutter on admission. Atrial flutter with RVR Clinically having symptoms of fluttering and racing heart for several months Cardiology consulted - Diltiazem gtt, + metoprolol this AM - On heparin gtt pending evaluation and cath as below, recommend conversion to oral agent likely eliquis 5mg BID following. Elevated troponin Initial troponin of 0.06 peaking at 0.115 now downtrending x2 to .08 suggestive of demand ischemia in the setting of flutter - Given risk factors and presentation cardiac cath recommended. Pending cath tonight/tomrrow Acute on chronic systolic HF, Shortness of Breath Moderate cardiomegaly and prominent pulmonary vasculature noted on chest x-ray - Echo: LVEF 35-40%, LV hypokinesis, RA dilation, mod-sev MR, IVC mild dilation -Recommend diuresis, s/p one dose of lasix with 1L of UOP. Recommend Lasix 20mg IV daily-BID titrated to UOP. 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 Glucose checks before meals/at bedtime. 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 held on admit pending rate control agent management per cardiology Continue atorvastatin 40 mg, ASA 81 mg daily Gout Continue allopurinol Alcohol abuse, 5-10 beers daily intake Denies history of withdrawal, seizures, DTs +thiamine, folic acid, as needed lorazepam DVT prophylaxis: Heparin GTT pending cardiology eval (2) Heart failure with reduced ejection fraction: (3) Elevated troponin I level: (4) Shortness of breath: (5) Diabetes: (6) Hypercholesterolemia: (7) Hypertension: (8) DVT prophylaxis: Supervising Physician Co-Signing Physician Notes Resident Physician Supervision Note: I independently interviewed and examined the patient and verified the carlson history and physical, reviewed labs and image studies, discussed the case with the resident Dr. Hill and agree with the findings and care plan. Subjective Mr. Kaur reports that he feels better today, but is still having some shortness of breath and chest tightness improved from yesterday. He has had 2- 3 months of a racing heartbeat, is still present this morning. Denies chest pain. Denies nausea, vomiting, diaphoresis, dizziness. Denies lightheadedness , dizziness, syncope. Denies weakness, numbness. Denies skin changes.Endorses a mild bilateral frontal headache which is tense in his forehead but not very bothersome. He has a history of type 2 diabetes. He is a former [id number] tobacco use history, no tobacco use in the last 20 years. Physical Exam 2 Vital Signs (Past 24 Hours): Last Vital Signs Temp 36.4 C L 07/16/18 16:09 Pulse 104 H 07/16/18 16:09 Resp 20 07/16/18 16:09 BP 136/84 07/16/18 16:09 Pulse Ox 94 07/16/18 16:09 Physical Exam: General: A&Ox3. NAD. Cooperative. HEENT: Atraumatic, normocephalic. Pulm: CTAB A&P. -wheezes, -rales, -rhonchi. Symmetrical chest rise. No increase work of breathing. No respiratory distress. Cardiac: Irregular, -mrg. PT/DP/Radial pulse intact and symmetrical Extremities: no edema Results & Data Laboratory Results Abnormal lab results 07/15/18 07/15/18 07/16/18 Range/Units 18:52 22:05 01:47 RBC 4.16 L (4.7-6.1) M/uL Hgb 12.9 L (14.0-18.0) g/dL Hct 38.1 L (42-52) % RDW Std Deviation 52.7 H (36.4-46.3) fL RDW Coeff of Jer 15.9 H (11.5-14.5) % MPV 11.9 H (7.4-10.4) fL APTT 73.8 H* (21.0-31.0) Seconds Sodium (136-145) mmol/L Glucose (70-99) mg/dl POC Glucose 247 H (70-99) Magnesium (1.8-2.4) mg/dl Troponin I (0-0.045) ng/ml 07/16/18 07/16/18 07/16/18 Range/Units 01:47 01:47 01:47 RBC (4.7-6.1) M/uL Hgb (14.0-18.0) g/dL Hct (42-52) % RDW Std Deviation (36.4-46.3) fL RDW Coeff of Jer (11.5-14.5) % MPV (7.4-10.4) fL APTT 58.7 H* (21.0-31.0) Seconds Sodium 133 L (136-145) mmol/L Glucose 247 H (70-99) mg/dl POC Glucose (70-99) Magnesium 1.7 L (1.8-2.4) mg/dl Troponin I 0.115 H* (0-0.045) ng/ml 07/16/18 07/16/18 07/16/18 Range/Units 07:29 09:16 11:07 RBC (4.7-6.1) M/uL Hgb (14.0-18.0) g/dL Hct (42-52) % RDW Std Deviation (36.4-46.3) fL RDW Coeff of Jer (11.5-14.5) % MPV (7.4-10.4) fL APTT (21.0-31.0) Seconds Sodium (136-145) mmol/L Glucose (70-99) mg/dl POC Glucose 247 H 286 H (70-99) Magnesium (1.8-2.4) mg/dl Troponin I 0.060 H* (0-0.045) ng/ml 07/16/18 07/16/18 Range/Units 12:21 16:21 RBC (4.7-6.1) M/uL Hgb (14.0-18.0) g/dL Hct (42-52) % RDW Std Deviation (36.4-46.3) fL RDW Coeff of Jer (11.5-14.5) % MPV (7.4-10.4) fL APTT (21.0-31.0) Seconds Sodium (136-145) mmol/L Glucose (70-99) mg/dl POC Glucose 282 H 286 H (70-99) Magnesium (1.8-2.4) mg/dl Troponin I (0-0.045) ng/ml Medications Administered Current Inpatient Medications Acetaminophen (Tylenol) 650 mg PO Q4H PRN PRN Reason: Pain or Fever Stop: 08/14/18 14:47 Last Admin: 07/16/18 15:35 Dose: 650 mg Al Hydrox/Mg Hydrox/Simethicone (Maalox) 15 ml PO Q4H PRN PRN Reason: Dyspepsia Stop: 08/14/18 14:47 Allopurinol (Zyloprim) 300 mg PO DAILY [facility] Stop: 08/15/18 08:59 Last Admin: 07/16/18 09:50 Dose: 300 mg Aspirin (Ecotrin Ectab) 81 mg PO QAM [facility] Stop: 08/15/18 08:59 Last Admin: 07/16/18 08:39 Dose: 81 mg Atorvastatin Calcium (Lipitor) 40 mg PO DAILY [facility] Stop: 08/15/18 08:59 Last Admin: 07/16/18 09:49 Dose: 40 mg Dextrose (Dextrose 50%) 25 - 50 ml IV UD PRN; Protocol PRN Reason: Hypoglycemia Protocol Stop: 08/14/18 14:56 Folic Acid (Folvite) 1 mg PO QAM [facility] Stop: 08/14/18 15:59 Last Admin: 07/16/18 08:39 Dose: 1 mg Glucagon (Glucagen) 1 mg IM UD PRN; Protocol PRN Reason: Hypoglycemia Protocol Stop: 08/14/18 14:56 Glucosamine Sulfate (Glucosamine Sulfate) 500 mg PO TID [facility] Stop: 08/15/18 08:59 Last Admin: 07/16/18 15:32 Dose: 500 mg Glucose (Glucose 40%) 15 - 30 gm PO UD PRN; Protocol PRN Reason: Hypoglycemia Protocol Stop: 08/14/18 14:56 Glucose (Dex4 Glucose) 4 - 8 tabs PO UD PRN; Protocol PRN Reason: Hypoglycemia Protocol Stop: 08/14/18 14:56 Heparin Sodium/Dextrose (Heparin Sodium/Dextrose) 25,000 units in 500 mls @ 34 mls/hr IV .[id number] AINSLEY; Protocol Stop: 08/14/18 12:45 Last Admin: 07/16/18 18:10 Dose: 1,700 units/hr, 34 mls/hr Lorazepam (Ativan) 1 mg in 2 mls @ 0.5 mls/min IV Q4H PRN PRN Reason: Alcohol Withdrawal Stop: 08/14/18 15:42 Insulin Aspart (Novolog Flexpen) 0 units SC ACHS [facility] Stop: 08/14/18 16:29 Last Admin: 07/16/18 18:11 Dose: 12 units Insulin Glargine (Lantus) 7 units SC BID [facility] Stop: 08/15/18 20:59 Magnesium Hydroxide (Milk Of Magnesia) 30 ml PO Q12H PRN PRN Reason: Constipation Stop: 08/14/18 14:47 Meloxicam (Mobic) 7.5 mg PO DAILY [facility] Stop: 08/15/18 08:59 Last Admin: 07/16/18 09:50 Dose: 7.5 mg Miscellaneous (Carbohydrates For Hypoglycemia) 15 - 30 gm PO UD PRN PRN Reason: Hypoglycemia Treatment Stop: 08/14/18 14:56 Morphine Sulfate (Morphine Sulfate) 2 mg IV Q30M PRN PRN Reason: Chest Pain Stop: 07/29/18 14:47 Nitroglycerin (Nitrostat) 0.4 mg SL UD PRN PRN Reason: Chest Pain Stop: 08/14/18 14:47 Ondansetron HCl (Zofran) 4 mg IV Q6H PRN PRN Reason: Nausea Stop: 08/14/18 14:47 Pantoprazole Sodium (Protonix) 40 mg PO DAILY [facility] Stop: 08/15/18 08:59 Last Admin: 07/16/18 09:51 Dose: 40 mg Polyethylene Glycol (Miralax Powder Packet) 17 gm PO DAILY PRN PRN Reason: Constipation Stop: 08/14/18 14:47 Thiamine HCl (Vitamin B-1) 100 mg PO QAM [facility] Stop: 08/14/18 15:59 Last Admin: 07/16/18 08:39 Dose: 100 mg Resident Activity Tracking Resident Involvement: Resident Care Provided Care Provided: Adult Hospital Medicine
[2018-07-16] MEDS: INSULIN GLARGINE 100 UNIT/ML VIAL SC SCH (20:51)
[2018-07-17 06:10] LABS: Partial Thromboplastin Ratio 1.9
[2018-07-17 06:14] LABS: Partial Thromboplastin Time 50.2 Seconds (21.0-31.0)
[2018-07-17] MEDS ORDERED: LIDOCAINE HCL 1% 20 ML VIAL ONE (07:29)
[2018-07-17] MEDS: INSULIN ASPART 100 UNITS/ML 3 ML PEN SC SCH ×3 (07:50→17:18)
[2018-07-17 07:52] LABS: Basophils # (auto) 0.03 K/uL (0-0.2); Basophils % (auto) 0.5 %; Eosinophils # (auto) 0.23 K/uL (0-0.5); Eosinophils % (auto) 3.9 %; Hemoglobin 12.3 g/dL (14.0-18.0); Immature Granulocytes # (auto) 0.01 K/uL (0.00-0.02); Immature Granulocytes % (auto) 0.2 %; Lymphocytes % (auto) 16.8 %; Mean Corpuscular Hgb Conc 33.2 g/dL (32-36); Mean Corpuscular Volume 91.6 fL (80-100); Mean Platelet Volume 12.3 fL (7.4-10.4); Monocytes # (auto) 0.47 K/uL (0.11-0.59); Monocytes % (auto) 7.9 %; Neutrophils # (auto) 4.23 K/uL (1.4-6.5); Neutrophils % (auto) 70.7 %; Platelet Count 146 K/uL (130-400); RDW Coefficient of Variation 15.9 % (11.5-14.5); RDW Standard Deviation 53.1 fL (36.4-46.3); Red Blood Count 4.04 M/uL (4.7-6.1); White Blood Count 5.97 K/uL (4.8-10.8)
[2018-07-17] MEDS: PANTOprazole 40 MG TAB PO SCH (07:52)
[2018-07-17] MEDS: ALLOPURINOL 300 MG TAB PO SCH (07:52)
[2018-07-17] MEDS: ATORVASTATIN 40 MG TAB PO SCH (07:52)
[2018-07-17] MEDS: GLUCOSAMINE SULFATE 500 MG CAP PO SCH ×2 (07:52→16:03)
[2018-07-17 07:53] LABS: BUN Creatinine Ratio 11.8 (10-20); Calcium 8.8 mg/dl (8.5-10.1); Creatinine Clr Calc Pharmacy 102.3 ml/min; Est GFR (African American) 88.6; Est GFR (Non-African American) 76.4; Potassium 3.9 mmol/L (3.5-5.1)
[2018-07-17] MEDS: MELOXICAM 7.5 MG TAB PO SCH (07:53)
[2018-07-17] MEDS: ASPIRIN 81 MG ECTAB PO SCH (07:54)
[2018-07-17] MEDS: FOLIC ACID 1 MG TAB PO SCH (07:54)
[2018-07-17] MEDS: THIAMINE HCL 100 MG TAB PO SCH (07:54)
[2018-07-17] MEDS: INSULIN GLARGINE 100 UNIT/ML VIAL SC SCH (07:55)
[2018-07-17] MEDS ORDERED: NITROGLYCERIN/D5W 100MCG/ML 20ML SYR ONE (07:57)
[2018-07-17] MEDS ORDERED: fentaNYL citrate 100 MCG/2 ML VIAL ONE (07:57)
[2018-07-17] MEDS ORDERED: MIDAZOLAM HCL 1 MG/ML 2ML VIAL ONE (07:57)
[2018-07-17] MEDS ORDERED: NiCARDipine HCL INJ 2.5 MG/ML 10 ML AMP ONE (07:57)
[2018-07-17] MEDS ORDERED: HEPARIN (PORCINE) 1000 UNIT/ML 10 ML (CATH LAB USE ONLY) ONE (07:57)
--- NOTE | 2018-07-17 08:13 | Pre Anesthesia Assessment ---
Date of Service July 17, 2018 Pre Sedation Assessment Vital Signs Temp Pulse Resp BP Pulse Ox 07/17/18 07:17 36.6 C 115 H 20 140/92 94 07/17/18 03:11 36.6 C 119 H 18 148/93 H 92 07/16/18 23:34 36.5 C 102 H 22 114/79 95 07/16/18 19:38 36.4 C L 96 H 20 135/93 94 07/16/18 16:09 36.4 C L 104 H 20 136/84 94 07/16/18 11:16 36.8 C 71 18 117/73 92 Cardiovascular + tachycardic Respiratory + respiratory effort normal Pre-Sedation Airway Assessment Smoking Status: Former smoker Hx Sleep Apnea: No Hx Difficult Intubation: No Short, Thick Neck: No Thyromental Distance: > or= 3.5 Finger Breadths Oral Cavity: + WNL Mallampati Class: III ASA: ASA3 Procedure Planning Contraindications for Sedation: none Current Medications Reviewed: Yes Notes The planned sedation has been discussed with the patient. Informed Consent was obtained. I have identified the patient, determined the appropriateness of sedation and have assessed the patient immediately prior to the procedure. All medicine(s) and interventions are by my order.
--- NOTE | 2018-07-17 08:46 | Cardiac Catheterization ---
Cardiac Cath Procedure: Brief Procedure Date July 17, 2018 Pre-Procedure Diagnosis Pre-Procedure Diagnosis: Non STEMI AUC Score AUC Score: 8 Post-Procedure Diagnosis Post-Procedure Diagnosis: Normal Coronary Arteries Procedure(s) Performed Procedure(s) Performed: Coronary Angiography and Left Heart Cath Supervisor [employer] Nick Hernandez MD [employer] Worker(s) Tarah Estimated Blood Loss Estimated Blood Loss: None Medication(s) Medication(s): Heparin, Morphine, Nicardipine, Nitroglycerin and Versed Preliminary Findings Normal coronary arteries. Normal left ventricular end-diastolic pressure. Recommendations Recommendations: None Specimens Specimens: None Procedural Complication(s) None Disposition PCU
[2018-07-17] MEDS ORDERED: APIXABAN 5 MG TABLET PO SCH (10:00)
[2018-07-17] MEDS ORDERED: METOPROLOL SUCC 50MG EXT REL TAB PO ONE (14:00)
--- NOTE | 2018-07-17 14:26 | Cardiology Progress Note ---
Date of Service July 17, 2018 Assessment & Plan (1) Atrial flutter with rapid ventricular response: He presents with atrial flutter with a rapid heart rate, he is somewhat symptomatic but has felt run down since and had not seen a medical professional. He may have had this arrhythmia for that long, I suspect he has had it for longer than his recent worsening of shortness of breath which probably correlates with his heart failure. His heart rate was well controlled on diltiazem, that has now been discontinued. He is currently on Eliquis as an anticoagulant. I would use beta blockade as rate control if possible, I would try metoprolol succinate 50 mg. I will see him as an outpatient and we can titrate that and I will also plan on cardioversion if he remains in atrial fibrillation. I have scheduled him for an office visit on August 04, I placed that visit in his discharge information (2) Elevated troponin I level: He did have an elevated troponin, however he has normal coronary arteries. Apparently that was due to oxygen supply and demand mismatch. (3) Shortness of breath: He has had worsening of his shortness of breath recently but has felt run down since . He appears to be in mild congestive heart failure this admission and he does have some mild left ventricular dysfunction. That could be on the basis of the arrhythmia and fluid retention. I suspect with rate control this will not be an issue but we will have to monitor his left ventricular function. Subjective He is feeling well today, no shortness of breath, no palpitations. Physical Exam 2 Vital Signs (Past 24 Hours): Last Vital Signs Temp 37.2 C 07/17/18 09:31 Pulse 118 H 07/17/18 10:08 Resp 19 07/17/18 10:08 BP 124/73 07/17/18 10:08 Pulse Ox 92 07/17/18 10:08 Physical Exam: Constitutional: Alert, cooperative and in no distress. Pulmonary: Clear to auscultation bilaterally. Cardiac: Irregular rhythm with no murmur, gallop or rub. Abdomen: Soft, nontender with normal bowel sounds. Extremities: No edema. Skin: No rash, ecchymoses or petechiae. Results & Data Diagnostic Findings Telemetry: Atrial fibrillation is somewhat rapid heart rate, currently not on medications.
[2018-07-17] MEDS ORDERED: INSULIN GLARGINE 100 UNIT/ML VIAL SC SCH (21:00)
--- NOTE | 2018-07-17 21:39 | Discharge Summary ---
Date of Service July 17, 2018 Admission HPI Per Admitting Provider 63 y/o M Hx HTN, HLD, DM II, gout, excess ETOH intake, GERD. Pt presents with a chief c/o SOB and chest tightness. He thought this might be due to a URI. He also reports a racing HR or palpitations intermittently for 2-3 months. On arrival to the ER, rapid flutter was noted on monitor. Initial labs are notable for a marginal troponin elevation. CXR is consistent with CHF. He denies CP, N/V, diaphoresis or lightheadedness. He is asymptomatic at rest at the time of admission and maintaining an adequate saturation on room air. PMH: 1) HTN 2) HLD 3) Gout 4) B12 deficiency 5) GERD 6) DM II 7) Obese Surgical: limited to an appendectomy Social: 50 + pack history. Quit smoking 20 yrs ago. Drinks 5-10 beers daily. 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 Family: Father with history of CVA Mother with history of CAD/stents Principal Diagnosis New Onset Atrial Flutter Discharge Exam General: A&Ox3. NAD. Cooperative. HEENT: Atraumatic, normocephalic. Pulm: CTAB A&P. -wheezes, -rales, -rhonchi. Symmetrical chest rise. No increased work of breathing. No respiratory distress. Cardiac: Irregularly irregular, -mrg. No JVD. Abdominal: Nontender, nondistended, soft. BS present. Extremities: No edema present. Discharge Data Allergies Allergy/AdvReac Type Severity Reaction Status Date / Time No Known Allergies Allergy Unverified 03/19/16 11:24 Consultations 07/15/18 13:17 ED Decision to Admit Stat 07/15/18 14:48 Consult Cardiology Routine Procedures Performed Operation Date: 07/17/18 08:00 Actual Procedures p Cath, Left with Cors and Vent - Alverto Hernandez MD s Cineradiography w/Routine Exam - Alverto Hernandez MD Ordered Studies 07/17/18 07:18 CL Cath Imgs for PACS use only Routine Hospital Course (1) Atrial flutter with rapid ventricular response: Mr. Kaur is a 63-year-old male with a past medical history of hypertension, hyperlipidemia, type 2 diabetes mellitus, gout, GERD, 5-10 beer per day alcohol intake who presents with 2-3 months of racing heartbeat and new shortness of breath and chest tightness without chest pain. He was in atrial flutter on admission. He reported to have clinical symptoms of atrial flutter including tachycardia and palpitations for several months. He was in Aflutter on admit. Cardiology was consulted and he was placed on diltiazem drip and metoprolol with good rate control. He had elevated troponins on admission which peaked at .115, given his risk factors he underwent cardiac cath to evaluate ischemic causes. No coronary disease was found, and he was converted to rate control with metoprolol 50mg XL , anticoagulated with eliquis 5mg BID, and discharged to followup with his PCP and cardiology. (2) Heart failure with reduced ejection fraction: Following admission Mr. Kaur was noted to have moderate cardiomegaly and prominent pulmonary vasculature noted on chest x-ray. Echo showed LVEF 35-40%, LV hypokinesis, RA dilation, mod-sev MR, IVC mild dilation. He was diuresed with a single 20mg dose of Lasix with good urine output. He was point lay ira for discharge following this dose and was discharged with close followup to cardiology. (3) Elevated troponin I level: He had an initial troponin of 0.06 peaking at 0.115 which downtrending x2 to .08 suggestive of demand ischemia in the setting of flutter. Given risk factors and presentation cardiac cath was performed as noted above and which was negative. (4) Shortness of breath: Mr. Kaur was experiencing shortness of breath on admission. He was treated for CHF and Afib as noted above and had resolution of his shortness of breath by time of discharge. 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 His serum glucose ran in the high 200s and he was stabilized on glargine 14units daily and SSI. Last A1C in December was 6.9%. Recommend recheck and followup as outpatient, discharged to followup with his PCP. (6) Hypercholesterolemia: Atorvastatin 40mg daily was maintained during admission. 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 His atorvastatin 40 mg, ASA 81 mg daily were continued. He was discharged on metoprolol 50mg XR and losartan 100mg PO daily. (8) DVT prophylaxis: Heparin GTT was initially maintained until his cath was performed. Afterwards he was converted to apixaban 5mg PO BID. (9) Alcohol abuse: Mr. Kaur reported a 5-10 beer daily intake. He denied history of withdrawal, seizures, and DTs. He was given thiamine, folic acid, and lorazepam PRN was added although not needed. He experienced no symptoms of withdrawal during admission. Recommend followup and alcohol abuse counseling with PCP as outpatient. (10) History of gout: Allopurinol was continued during admission with no evidence of a gout flare. Total Time Total Time Spent Total Time Spent (In Minutes): 30 Discharge Plan Discharge Items Patient Disposition: Home - Self-Care Reason For Visit: A FLUTTER. ELEVATED TROP, CHF Discharge Diagnosis: Atrial Flutter with RVR and demand ischemia Condition: Good Discharge Goals: Improve disease control and Improve function Activity: Resume your previous activity Non-emergency contact: Primary Care Provider and Vp Ancillary Call non-emergency contact if: you have any medication questions, your symptoms worsen, your pain is not controlled, your pain is worsening and your pain is unusual for you Follow-up/Referrals: Edis Mckeon MD [Physician] - 08/04/18 12:15 pm (Please, follow up at [facility]'s Cardiology Office with Dr. Mckeon on FridayAugust 04 at 12:15 pm. *This office is located in [address] of [facility] - big building next to this hospital. If you need to change this appointment, call the office at [phone].) Wendi Alva, [Primary Care Provider] - 07/29/18 10:20 am (Please, follow up at Dr. Alva's office with her associate, Joao ESPINOZA, on FridayJuly 29 at 10:20 am. *This office is located next to [facility]. If you need to change this appointment, call the office at [phone]) Diet: Carb Consistent or DM2 Addtl Provider Instructions: You were seen in the hospital for a racing heartbeat and shortness of breath. A heart rhythm known as atrial flutter was present during your hospital admission. Your cardiac catheterization was normal. Medication changes have been made as noted below: Please stop taking amlodipine. This has been replaced with metoprolol. You have been prescribed a new heart medication, metoprolol succinate. Please take metoprolol succinate 50 mg daily in the morning. He has been prescribed a anticoagulant, Eliquis. Please take Eliquis 5 mg twice daily. An appointment had been made for you to follow-up with cardiology on 08/04/2018 at 12:15pm. If you need to cancel/change your appointment, please call Dr. Mckeon's office at [phone]. An appointment had been made for you to follow-up with your primary care physician, Dr. Alva on 07/29/2018 at 10:20am. If you need to cancel/change your appointment please call Dr. Alva's office at [phone]. If you develop chest pain, worsening shortness of breath, lightheadedness, dizziness, vision change, palpitations, feeling like you are going to pass out, or have any episodes of bleeding please call Dr. Alva's office at [phone], or go to the emergency department if you are concerned. Prescriptions: New apixaban [Eliquis] 5 mg Tablet 5 mg PO BID 30 Days Qty: 60 RF: 3 metoprolol succinate 50 mg tablet extended release 24 hr 50 mg PO DAILY Qty: 30 RF: 2 Continue atorvastatin 40 mg tablet 40 mg PO DAILY RF: 0 metformin 500 mg tablet 1 tab PO AMHS RF: 0 glucosamine sulfate [Glucosamine] 500 mg Tablet 500 mg PO TID RF: 0 cyanocobalamin (vitamin B-12) [Vitamin B-12] 250 mcg Tablet PO RF: 0 aspirin 81 mg Tablet,Delayed Release (Dr/Ec) 81 mg PO DAILY RF: 0 meloxicam 7.5 mg tablet 7.5 mg PO DAILY RF: 0 omeprazole 20 mg Capsule,Delayed Release(Dr/Ec) 20 mg PO DAILY RF: 0 allopurinol 300 mg tablet 300 mg PO DAILY RF: 0 losartan 100 mg tablet 100 mg PO DAILY RF: 0 cholecalciferol (vitamin D3) [Vitamin D3] 400 unit Tablet PO RF: 0 omega-3 fatty acids-fish oil [Fish Oil] 360-1,200 mg Capsule 1 cap PO DAILY RF: 0 guaifenesin [Mucinex] 600 mg Tablet Extended Release 12hr 600 mg PO Q12H PRN (Reason: Congestion) RF: 0 Dayquil 1 dose PO DAILY PRN (Reason: Congestion) RF: 0 Discontinued amlodipine 5 mg Tablet 5 mg PO DAILY RF: 0 Visit Report Forms: [facility] qLearning Portal Stand-Alone Forms: [facility] qLearning Krames/Other Patient Handouts: Metoprolol Succinate Hydrochlorothiazide Oral tablet extended-release, Apixaban Oral tablet, Log Blood Sugar, Angina, AFL/Afib , Hyperglycemia, Hypoglycemia, Diabetes Resources, Blood Sugar Check, Diabetes Type 2 Oral Meds, Diabetes Healthy Meals, Blood Sugar Manage Exercise, Angina Heart Attack Recognize Discharge Orders: Discharge Order (Routine); Ordered 07/17/18 Ordered By: Ric Hill Admission Data Admit Date/Time: 07/15/18 13:12 Attending Provider: Jie Reid Admit Provider: Vipul Castillo Primary Care Provider: Wendi Alva Other Providers: Vipul Castillo ; Edis Mckeon Service: Telemetry Other Interventions: Discharge Summary Assessment (RN) Last Done: 07/17/18 17:40 DC Date/Time DO NOT enter until pt leaves facility: 07/17/18 18:35 Supervising Physician Co-Signing Physician Notes Resident Physician Supervision Note: I independently interviewed and examined the patient and verified the carlson history and physical, reviewed labs and image studies, discussed the case with the resident Dr. Hill and agree with the findings and care plan. Time spent in discharge 35 min Resident Activity Tracking Resident Involvement: Resident Care Provided Care Provided: Adult Hospital Medicine
--- NOTE | 2018-07-21 09:26 | Cardiac Catheterization ---
Date of Service July 17, 2018 Cardiac Cath Report Cardiac Cath Report Procedure performed: Cardiac catheterization Staff nutritional services director: Nick Hernandez MD Indication: The patient is a 63-year-old gentleman without a known history of coronary disease who was recently admitted for atrial flutter and associated high ventricular rates. He was noted to have elevated cardiac biomarkers and based on his risk factors, symptoms and objective findings was felt to be a good candidate for coronary angiography. Procedure in detail: The patient was informed of the risks benefits and alternatives to the intended procedure, he understood such and wished to proceed. He was taken to the cardiac catheterization suite in a fasting state. Conscious sedation was administered per protocol and the patient was monitored electrocardiographically throughout today's procedure. The right wrist area was prepped and draped in usual sterile fashion. This area was anesthetized using subcutaneous administration of a lidocaine solution. The right radial artery was then accessed using Seldinger technique, and a arterial sheath was placed at this site over a guidewire. The sheath was used to facilitate passage of the cardiac catheter for coronary angiography and left heart catheterization. Coronary angiogram was then obtained in multiple orthogonal views prior to removal of the catheter. At the conclusion of the procedure the sheath was removed and hemostasis was achieved at the access site using manual pressure. The patient tolerated procedure well, there were no immediate complications. Equipment used: 5 Malt[place] tiger 4 Findings: Opening aortic pressure: 106/76 millimeters of mercury Left ventricular pressure: 110/2 millimeter Hg Left ventricular end-diastolic pressure 10 millimeters of mercury Closing aortic pressure 109/77 millimeters of mercury Coronary angiography: Left main: Left main coronary was short but bifurcated normally into left anterior descending left circumflex artery. No significant disease in this vessel Left anterior descending: Left anterior descending was a large vessel with a single large diagonal branch. There were luminal irregularities but no discrete stenosis in this distribution Left circumflex: Left circumflex artery was a large system and it produced 2 large obtuse marginal branches and 1 smaller distal obtuse marginal branch. There were luminal irregularities in this distribution but no discrete stenoses Right coronary artery: The right coronary artery was a codominant vessel. There was no obstructive disease in this vessel. Impression: Normal coronary arteries without evidence of obstructive coronary disease Normal left ventricular end-diastolic pressure No evidence of aortic stenosis
== END 2018-07-17 18:35 | disposition home or self-care (01) | DRG 286 ==
LOC: ED 11:08 → 2S 13:12 → SUATTDRO 13:12 → 2S 14:16

== ENCOUNTER 2018-07-28 16:44 | Inpatient (IN) ==
[2018-07-28 17:56] LABS: Basophils # (auto) 0.04 K/uL (0-0.2); Basophils % (auto) 0.6 %; Eosinophils # (auto) 0.19 K/uL (0-0.5); Hematocrit (blood only) 39.2 % (42-52); Immature Granulocytes # (auto) 0.01 K/uL (0.00-0.02); Immature Granulocytes % (auto) 0.2 %; Lymphocytes # (auto) 1.42 K/uL (1.2-3.4); Lymphocytes % (auto) 22.2 %; Mean Corpuscular Hgb Conc 33.2 g/dL (32-36); Mean Corpuscular Volume 92.5 fL (80-100); Mean Platelet Volume 12.2 fL (7.4-10.4); Monocytes # (auto) 0.38 K/uL (0.11-0.59); Monocytes % (auto) 5.9 %; Neutrophils # (auto) 4.37 K/uL (1.4-6.5); Neutrophils % (auto) 68.1 %; Platelet Count 189 K/uL (130-400); RDW Coefficient of Variation 16.5 % (11.5-14.5); RDW Standard Deviation 55.5 fL (36.4-46.3); Red Blood Count 4.24 M/uL (4.7-6.1); White Blood Count 6.41 K/uL (4.8-10.8)
[2018-07-28 18:07] LABS: INR 1.1 (0.9-1.1); Partial Thromboplastin Ratio 1.2; Partial Thromboplastin Time 30.1 Seconds (21.0-31.0); Prothrombin Time 11.4 Seconds (9.0-12.0)
[2018-07-28 18:11] LABS: BUN Creatinine Ratio 19.5 (10-20); Calcium 9.1 mg/dl (8.5-10.1); Creatinine Clr Calc Pharmacy 95.9 ml/min; Est GFR (African American) 80.9; Est GFR (Non-African American) 69.8; Magnesium 1.8 mg/dl (1.8-2.4); Potassium 4.2 mmol/L (3.5-5.1)
[2018-07-28 18:23] LABS: Albumin Globulin Ratio 1.2 (0.9-2); Bilirubin,Total 1.1 mg/dl (0.2-1); Globulin 3.4 gm/dl (2.5-4.0); Total Protein 7.4 gm/dl (6.4-8.2); Troponin I 0.059 ng/ml (0-0.045)
--- NOTE | 2018-07-28 18:29 | XRay Report ---
XR chest 1V portable HISTORY: Dyspnea COMPARISON: Chest 07/15/2018. FINDINGS: The heart remains mildly enlarged. No pneumothorax. No pleural effusions. Mild central pulm onary vascular congestion without overt edema. Hazy appearance to the lung bases persist. IMPRESSION: 1. Mild pulmonary vascular congestion and mild cardiomegaly persist. 2. Hazy appearance to the lung bases, unchanged. Electronically signed by: William Echols M.D. 07/28/2018 6:28 PM
[2018-07-28] MEDS ORDERED: FUROSEMIDE 40 MG/4 ML VIAL IV STA (18:35)
--- NOTE | 2018-07-28 18:49 | Emergency Department Note ---
Entered by Gail Howard acting as a scribe for Eliseo Gusman M.D. History of Present Illness General Chief complaint: Shortness of Breath/Dyspnea Stated complaint: CAN'T CATCH BREATH Source: patient and family Mode of arrival: ambulatory Limitations: no limitations History of Present Illness Provider complaint: SOB Onset (ago): week(s) ("couple weeks") Location: chest Severity: moderate Pain Consistency: + constant Maximum Pain Intensity: 5 Associated symptoms: + denies other symptoms and + cough Patient is a 63 year old male presenting to the ED with SOB beginning a few weeks ago. Patient states that he was seen in the ED a few weeks ago for similar chief complaint, and was sent home with Metoprolol and eliquis after finding he was in Atrial Flutter. Patient shares that since being discharged, his SOB has not improved. shares that patient does have trouble sleeping flat and worsening SOB with exertion. He notes he does have chest tightness when breathing. Patient complains he does have some cough congestion but denies any leg swelling, fevers, chills, nausea, vomiting, or any other complaints or concerns at this time. Home Medications Home Medications Medication Instructions Recorded Confirmed Type allopurinol 300 mg PO DAILY 07/15/18 07/28/18 History aspirin 81 mg PO DAILY 07/15/18 07/28/18 History atorvastatin 40 mg PO DAILY 07/15/18 07/28/18 History cyanocobalamin (vitamin B-12) 0 mcg PO DAILY 07/15/18 07/28/18 History [Vitamin B-12] glucosamine sulfate [Glucosamine] 1,500 mg PO DAILY 07/15/18 07/28/18 History losartan 100 mg PO DAILY 07/15/18 07/28/18 History meloxicam 7.5 mg PO DAILY 07/15/18 07/28/18 History omega-3 fatty acids-fish oil [Fish 1 cap PO DAILY 07/15/18 07/28/18 History Oil] omeprazole 20 mg PO DAILY 07/15/18 07/28/18 History apixaban [Eliquis] 5 mg PO BID 30 Days #60 tab 07/17/18 07/28/18 Rx cholecalciferol (vitamin D3) 1,000 unit PO DAILY 07/28/18 07/28/18 History [Vitamin D3] metformin [Glucophage] 500 mg PO BID 07/28/18 07/28/18 History metoprolol succinate 50 mg PO BID 07/28/18 07/28/18 History Allergies Allergy/AdvReac Type Severity Reaction Status Date / Time No Known Allergies Allergy Unverified 07/28/18 19:08 Past Med/Surg History Medical History History of gout Diabetes (Chronic) Hypercholesterolemia (Chronic) Hypertension (Chronic) Atrial flutter (Chronic) CHF (congestive heart failure) (Chronic) On anticoagulant therapy (Chronic) Surgical History History of appendectomy Social History Current Living Situation: Significant Other current occupational status: employed 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 and A total of 10 systems reviewed and were otherwise negative Physical Exam Vital Signs Vital Signs - 24 hr 07/28/18 17:11 07/28/18 17:40 07/28/18 18:30 Temperature 36.4 C L Temperature Source Oral Sepsis Recent Fever Within 48 Hours No Sepsis New/Unexplained Change in Mental Status No Sepsis Action Taken by Nursing No Action Required Pulse Rate 112 H 112 H Pulse Rate [Apical] 97 H Pulse Rhythm Regular Regular Pulse Strength Normal Respiratory Rate 20 20 20 Respiratory Effort / Characteristics Non-Labored Spontaneous Non-Labored Spontaneous Respiratory Depth Normal Normal Respiratory Pattern Regular Regular Blood Pressure 144/101 H Blood Pressure [Right Arm] 119/93 Blood Pressure Mean 115 Blood Pressure Mean [Right Arm] 101 Blood Pressure Position Sitting Pulse Oximetry 96 96 97 Oxygen Delivery Method Room Air Room Air Room Air 07/28/18 18:40 07/28/18 19:43 07/28/18 21:14 Temperature Temperature Source Sepsis Recent Fever Within 48 Hours Sepsis New/Unexplained Change in Mental Status Sepsis Action Taken by Nursing Pulse Rate Pulse Rate [Apical] 96 H 96 H 109 H Pulse Rhythm Pulse Strength Respiratory Rate 18 18 18 Respiratory Effort / Characteristics Non-Labored Non-Labored Respiratory Depth Normal Normal Normal Respiratory Pattern Blood Pressure Blood Pressure [Right Arm] 115/85 126/71 117/80 Blood Pressure Mean Blood Pressure Mean [Right Arm] 95 89 92 Blood Pressure Position Pulse Oximetry 95 96 95 Oxygen Delivery Method Room Air Room Air Room Air GENERAL: Awake, alert, well-appearing, in no distress HENT: Normocephalic, atraumatic. EYES: Normal conjunctiva. Sclera non-icteric. NECK: Supple. No nuchal rigidity. RESPIRATORY: Clear to auscultation. No wheezes. Diminshed sounds at bilateral bases. CARDIAC: Tachycardic, irregular rate. Extremities warm and well perfused. GI: Soft, non-distended. No tenderness to palpation. No rebound or guarding. RECTAL: Deferred. MUSCULOSKELETAL: Atraumatic. Chest examination reveals no tenderness. LOWER EXTREMITIES: Calves are equal size bilaterally and non-tender. Trace bilateral edema NEURO: Normal sensorium. No sensory or motor deficits noted. No facial droop. SKIN: Warm and dry. No rash or jaundice noted. Course 1730: Past medical records reviewed. The patient was evaluated in room A09A, and a complete history and physical examination were performed. 1833: Discussed results with patient. Patient will be admitted as inpatient. Patient is agreeable to plan. Administered Medications Discontinued Medications Furosemide (Lasix) 40 mg IV NOW STA Stop: 07/28/18 18:36 Last Admin: 07/28/18 18:45 Dose: 40 mg Medical Decision Making Differential Diagnosis Differential diagnosis: Etiologies such as infections, reactive airway disease, COPD, pneumonia, pleural effusion, pulmonary edema, ARDS, pneumothorax, CHF, cardiac ischemia, cardiac tamponade, dysrhythmia, anemia, pulmonary embolism, musculoskeletal, gastrointestinal process, as well as others were entertained. Medical Records Attestation: I reviewed the patient's medical records. Home Medications Current Medication List: was personally reviewed by me Laboratory Data Attestation: I reviewed the patient's lab results. Result diagrams: 07/28/18 17:35 07/28/18 17:35 Lab Results 07/28/18 07/28/18 07/28/18 Range/Units 17:35 17:35 17:35 WBC 6.41 (4.8-10.8) K/uL RBC 4.24 L (4.7-6.1) M/uL Hgb 13.0 L (14.0-18.0) g/dL Hct 39.2 L (42-52) % MCV 92.5 (80-100) fL MCH 30.7 (25-34) pg MCHC 33.2 (32-36) g/dL RDW Std Deviation 55.5 H (36.4-46.3) fL RDW Coeff of Jer 16.5 H (11.5-14.5) % Plt Count 189 (130-400) K/uL MPV 12.2 H (7.4-10.4) fL Immature Gran % (Auto) 0.2 % Neut % (Auto) 68.1 % Lymph % (Auto) 22.2 % [place] % (Auto) 5.9 % Eos % (Auto) 3.0 % Baso % (Auto) 0.6 % Immature Gran # (Auto) 0.01 (0.00-0.02) K/uL Neut # (Auto) 4.37 (1.4-6.5) K/uL Lymph # (Auto) 1.42 (1.2-3.4) K/uL [place] # (Auto) 0.38 (0.11-0.59) K/uL Eos # (Auto) 0.19 (0-0.5) K/uL Baso # (Auto) 0.04 (0-0.2) K/uL PT 11.4 (9.0-12.0) Seconds INR 1.1 (0.9-1.1) APTT 30.1 (21.0-31.0) Seconds PTT Ratio 1.2 Sodium 137 (136-145) mmol/L Potassium 4.2 (3.5-5.1) mmol/L Chloride 105 (98-107) mmol/L Carbon Dioxide 23 (21-32) mmol/L Anion Gap 9.0 (3-11) BUN 22 H (7-18) mg/dl Creatinine 1.11 (0.6-1.4) mg/dl Est Cr Clr Drug Dosing 95.9 ml/min Est GFR ( Amer) 80.9 Est GFR (Non-Af Amer) 69.8 BUN/Creatinine Ratio 19.5 (10-20) Glucose 238 H (70-99) mg/dl POC Glucose (70-99) Calcium 9.1 (8.5-10.1) mg/dl Magnesium 1.8 (1.8-2.4) mg/dl Total Bilirubin 1.1 H (0.2-1) mg/dl AST 25 (15-37) U/L ALT 49 (12-78) U/L Alkaline Phosphatase 82 (45-117) U/L POC Troponin I (0-0.045) ng/ml Troponin I 0.059 H* (0-0.045) ng/ml NT-Pro-B Natriuret Pep 1653 H (0-900) pg/ml Total Protein 7.4 (6.4-8.2) gm/dl Albumin 4.0 (3.4-5.0) gm/dl Globulin 3.4 (2.5-4.0) gm/dl Albumin/Globulin Ratio 1.2 (0.9-2) 07/28/18 07/28/18 Range/Units 17:44 22:27 WBC (4.8-10.8) K/uL RBC (4.7-6.1) M/uL Hgb (14.0-18.0) g/dL Hct (42-52) % MCV (80-100) fL MCH (25-34) pg MCHC (32-36) g/dL RDW Std Deviation (36.4-46.3) fL RDW Coeff of Jer (11.5-14.5) % Plt Count (130-400) K/uL MPV (7.4-10.4) fL Immature Gran % (Auto) % Neut % (Auto) % Lymph % (Auto) % [place] % (Auto) % Eos % (Auto) % Baso % (Auto) % Immature Gran # (Auto) (0.00-0.02) K/uL Neut # (Auto) (1.4-6.5) K/uL Lymph # (Auto) (1.2-3.4) K/uL [place] # (Auto) (0.11-0.59) K/uL Eos # (Auto) (0-0.5) K/uL Baso # (Auto) (0-0.2) K/uL PT (9.0-12.0) Seconds INR (0.9-1.1) APTT (21.0-31.0) Seconds PTT Ratio Sodium (136-145) mmol/L Potassium (3.5-5.1) mmol/L Chloride (98-107) mmol/L Carbon Dioxide (21-32) mmol/L Anion Gap (3-11) BUN (7-18) mg/dl Creatinine (0.6-1.4) mg/dl Est Cr Clr Drug Dosing ml/min Est GFR ( Amer) Est GFR (Non-Af Amer) BUN/Creatinine Ratio (10-20) Glucose (70-99) mg/dl POC Glucose 231 H (70-99) Calcium (8.5-10.1) mg/dl Magnesium (1.8-2.4) mg/dl Total Bilirubin (0.2-1) mg/dl AST (15-37) U/L ALT (12-78) U/L Alkaline Phosphatase (45-117) U/L POC Troponin I 0.04 (0-0.045) ng/ml Troponin I (0-0.045) ng/ml NT-Pro-B Natriuret Pep (0-900) pg/ml Total Protein (6.4-8.2) gm/dl Albumin (3.4-5.0) gm/dl Globulin (2.5-4.0) gm/dl Albumin/Globulin Ratio (0.9-2) ECG Data Attestation: I personally reviewed and interpreted this ECG as follows: Indication: SOB/dyspnea Rate (beats per minute): 99 Rhythm: atrial flutter Findings: no ST elevation Comparison ECG Date: from (07/16/18) Change: the following changes noted (persistent A flutter and new PACs) Blood Pressure Blood Pressure Findings: Normal blood pressure MDM Narrative 63-year-old gentleman with a history of hypertension diabetes recently diagnosed with atrial flutter/fibrillation and heart failure with an EF of 35-40 %. Since discharge is been very short of breath with any exertion. Significant dyspnea even with transferring from wheelchair to bed. Denies fever. Some slight chest tightness at times. Denies significant leg swelling. Not on diuretics but is on Eliquis and states compliance. Has been using metoprolol for rate control and doubled yesterday per his primary care doctor. Still significantly short of breath. Concern for possible heart failure exacerbation. Doubt PE based on the anticoagulation. Doubt dissection. No evidence of pneumonia. CT chest x-ray does show evidence of increased pulmonary vascular congestion and BNP is elevated. Likely this is causing his shortness of breath and believe the CHF exacerbation. Troponin is slightly elevated but downtrending from previous with recent cath doubt this is acute ACS. EKG persistent afib vs flutter. Given a dose of Lasix. Patient will be evaluated by hospitalist for admission the patient wishes for this. Impression & Plan CHF exacerbation, SOB (shortness of breath) Discharge Plan Visit Data *Final* Discharge Date/Time: 07/28/18 21:26 Chief Complaint: Shortness of Breath/Dyspnea Stated Complaint: CAN'T CATCH BREATH ED Provider: Eliseo Gusman Discharge Problem: CHF exacerbation, SOB (shortness of breath) Patient Disposition: Admitted As Inpatient Discharge Instructions Interventions: ED Discharge Assessment Last Done: 07/28/18 21:26 The donny's documentation has been prepared under my direction and personally reviewed by me in its entirety. I confirm that the note above accurately reflects all work, treatment, procedures, and medical decision making performed by me.
--- NOTE | 2018-07-28 20:10 | History & Physical Report ---
Date of Service July 28, 2018 Assessment & Plan (1) Atrial flutter: 63 y/o M Hx HTN, HLD, DM II, gout, excess ETOH intake, GERD. Pt presents with a chief c/o SOB and chest tightness. Here for new onset A flutter with CHF 07/15/18 - 07/18/18, started on metoprolol and eliquis. Not sent home on lasix. S/p heart catheterization during that stay which was negative for obstructive coronary disease, no aortic stenosis. Echo done during that stay positive for mild CHF: Ejection fraction 35-40%, moderate global hypokinesis of left ventricle, right ventricular systolic function mildly reduced, moderate to severe mitral regurg, IVC mildly dilated. Seen by cardiology and started on beta-christophe and Eliquis. Sent home, says he has not felt well since being home. Endorses dyspnea on exertion, orthopnea, paroxysmal nocturnal dyspnea, chest tightness, dry cough. Says he has lost weight, denies weight gain. Has been taking his medicines as directed. Significant other Linda is in the room and says she has wanted him to return to the hospital but he has refused until now. Because of increasing shortness of breath and weakness he came in. Did see his PCP yesterday and they spoke with cardiology and increase his metoprolol to 50 mg twice daily. Also endorses 3 days of left calf and posterior thigh pain that has since resolved. Has been mostly sedentary since discharge and staying home from work. Troponin is elevated although is stable from discharge. He is maintaining an adequate saturation on room air. Is in a flutter, rate 90s to low 100s. Given 40 of Lasix in the ED. Atrial flutter, CHF exacerbation -Troponin is still slightly elevated but is stable since last taken on day of discharge 0.06->0.059 -Stable mild pulmonary vascular congestion on chest x-ray -Last admission's echo and heart cath report reviewed as above. Will defer to cardiology for further management. Will likely benefit from closer outpatient follow-up and reassurance, cardiac rehab. -Metoprolol increased to twice daily as of yesterday per discussion between PCP and cardiology. Shortness of breath -Given 40 of Lasix in the ED with good effect -May benefit from daily regimen -As above Calf pain -Patient is already on Eliquis -Does complain of calf pain and sedentary -Ultrasound of lower extremity left ordered to query FEN/GI: Heart healthy, diabetic diet DVT ppx: On Eliquis CODE STATUS: Full DISPO: Telemetry, obs Other ongoing medical problems: Alcohol abuse -Patient's last drink was 1 week ago. Counseled on cessation Diabetes -Last A1c 7.9 -ISS Hypercholesterolemia -Continue home statin Hypertension -Continue home Cozaar and Toprol-XL Gout -Continue home allopurinol (2) CHF exacerbation: (3) SOB (shortness of breath): (4) Alcohol abuse: (5) Heart failure with reduced ejection fraction: (6) Diabetes: (7) Hypercholesterolemia: (8) Hypertension: (9) DVT prophylaxis: (10) History of gout: History of Present Illness Chief Complaint: orthopnea, chest tightness Primary Care Provider: Wendi Alva, DO 63 y/o M Hx HTN, HLD, DM II, gout, excess ETOH intake, GERD. Pt presents with a chief c/o SOB and chest tightness. Here for new onset A flutter with CHF 07/15 - 07/18/18, started on metoprolol and eliquis. Not sent home on lasix. S/p heart catheterization during that stay which was negative for obstructive coronary disease, no aortic stenosis. Echo done during that stay positive for mild CHF: Ejection fraction 35-40%, moderate global hypokinesis of left ventricle, right ventricular systolic function mildly reduced, moderate to severe mitral regurg, IVC mildly dilated. Seen by cardiology and started on beta-christophe and Eliquis. Sent home, says he has not felt well since being home. Endorses dyspnea on exertion, orthopnea, paroxysmal nocturnal dyspnea, chest tightness, dry cough. Says he has lost weight, denies weight gain. Has been taking his medicines as directed. Significant other Linda is in the room and says she has wanted him to return to the hospital but he has refused until now. Because of increasing shortness of breath and weakness he came in. Did see his PCP yesterday and they spoke with cardiology and increase his metoprolol to 50 mg twice daily. Also endorses 3 days of left calf and posterior thigh pain that has since resolved. Has been mostly sedentary since discharge and staying home from work. Troponin is elevated although is stable from discharge. He is maintaining an adequate saturation on room air. Is in a flutter, rate 90s to low 100s. Given 40 of Lasix in the ED. PMH: 1) HTN 2) HLD 3) Gout 4) B12 deficiency 5) GERD 6) DM II 7) Obese 8) mild CHF 2/2 A flutter with RVR Surgical: limited to an appendectomy Social: 49 + pack history. Quit smoking 20 yrs ago. Drinks 5-10 beers daily. Last drink was 1 week ago. 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 Family: Father with history of CVA Mother with history of CAD/stents Allergies Allergy/AdvReac Type Severity Reaction Status Date / Time No Known Allergies Allergy Unverified 07/28/18 19:08 Home Medications Home Medications Medication Instructions Recorded Confirmed Type allopurinol 300 mg PO DAILY 07/15/18 07/28/18 History aspirin 81 mg PO DAILY 07/15/18 07/28/18 History atorvastatin 40 mg PO DAILY 07/15/18 07/28/18 History cyanocobalamin (vitamin B-12) 0 mcg PO DAILY 07/15/18 07/28/18 History [Vitamin B-12] glucosamine sulfate [Glucosamine] 1,500 mg PO DAILY 07/15/18 07/28/18 History losartan 100 mg PO DAILY 07/15/18 07/28/18 History meloxicam 7.5 mg PO DAILY 07/15/18 07/28/18 History omega-3 fatty acids-fish oil [Fish 1 cap PO DAILY 07/15/18 07/28/18 History Oil] omeprazole 20 mg PO DAILY 07/15/18 07/28/18 History apixaban [Eliquis] 5 mg PO BID 30 Days #60 tab 07/17/18 07/28/18 Rx cholecalciferol (vitamin D3) 1,000 unit PO DAILY 07/28/18 07/28/18 History [Vitamin D3] metformin [Glucophage] 500 mg PO BID 07/28/18 07/28/18 History metoprolol succinate 50 mg PO BID 07/28/18 07/28/18 History Past Med/Surg History Medical History History of gout Diabetes (Chronic) Hypercholesterolemia (Chronic) Hypertension (Chronic) Atrial flutter (Chronic) CHF (congestive heart failure) (Chronic) On anticoagulant therapy (Chronic) Surgical History History of appendectomy Social History Current Living Situation: Spouse current occupational status: employed 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 Other Information That Helps Us Care for You: No Feels Safe at Home: Yes Safety Concerns: Feels Safe At This Time Smoking Status: Former smoker Do You Dip or Chew Tobacco: No Second Hand Exposure: No Tobacco Cessation Education Requested by Patient: No Hx Alcohol Use: Yes Alcohol type: beer Alcohol Intake Frequency: 0-2 drinks per day Hx Substance Use: Yes substance use type: does not use Beliefs That Will Affect Care: None Preferred Language: Moroccan Communication Ability: Effective Air Brake Adjuster Required: No Review of Systems All systems reviewed & are unremarkable except as noted in HPI & below Physical Exam 2 Vital Signs (Past 24 Hours): Last Vital Signs Temp 36.4 C L 07/28/18 17:11 Pulse 96 H 07/28/18 19:43 Resp 18 07/28/18 19:43 BP 126/71 07/28/18 19:43 Pulse Ox 96 07/28/18 19:43 Physical Exam: Vitals noted as above and within normal limits with the exception of atrial flutter on telemetry, rate in the low 100s. GENERAL: Awake, alert, tired-appearing, in no distress HENT: Normocephalic, atraumatic. EYES: Normal conjunctiva. Sclera non-icteric. EOMI. NECK: Supple. Full range of motion. no JVD RESPIRATORY: Clear to auscultation bilaterally, slight crackles heard on right side base. CARDIAC: Regular rate, normal rhythm. In atrial flutter on telemetry. Extremities warm and well perfused. Pulses equal. ABDOMEN: Soft, non-distended. No tenderness to palpation. No rebound or guarding. No masses. Bowel sounds are normal. LOWER EXTREMITIES: Calves are equal size bilaterally and non-tender. No edema. No discoloration. NEURO: No gross focal motor deficits noted. SKIN: Rash not present. No jaundice noted. PSYCH: appropriate mood and affect. Results & Data Laboratory Results 07/28/18 07/28/18 07/28/18 Range/Units 17:44 17:35 17:35 WBC (4.8-10.8) K/uL RBC (4.7-6.1) M/uL Hgb (14.0-18.0) g/dL Hct (42-52) % MCV (80-100) fL MCH (25-34) pg MCHC (32-36) g/dL RDW Std Deviation (36.4-46.3) fL RDW Coeff of Jer (11.5-14.5) % Plt Count (130-400) K/uL MPV (7.4-10.4) fL Immature Gran % (Auto) % Neut % (Auto) % Lymph % (Auto) % [place] % (Auto) % Eos % (Auto) % Baso % (Auto) % Immature Gran # (Auto) (0.00-0.02) K/uL Neut # (Auto) (1.4-6.5) K/uL Lymph # (Auto) (1.2-3.4) K/uL [place] # (Auto) (0.11-0.59) K/uL Eos # (Auto) (0-0.5) K/uL Baso # (Auto) (0-0.2) K/uL PT 11.4 (9.0-12.0) Seconds INR 1.1 (0.9-1.1) APTT 30.1 (21.0-31.0) Seconds PTT Ratio 1.2 Sodium 137 (136-145) mmol/L Potassium 4.2 (3.5-5.1) mmol/L Chloride 105 (98-107) mmol/L Carbon Dioxide 23 (21-32) mmol/L Anion Gap 9.0 (3-11) BUN 22 H (7-18) mg/dl Creatinine 1.11 (0.6-1.4) mg/dl Est Cr Clr Drug Dosing 95.9 ml/min Est GFR ( Amer) 80.9 Est GFR (Non-Af Amer) 69.8 BUN/Creatinine Ratio 19.5 (10-20) Glucose 238 H (70-99) mg/dl Calcium 9.1 (8.5-10.1) mg/dl Magnesium 1.8 (1.8-2.4) mg/dl Total Bilirubin 1.1 H (0.2-1) mg/dl AST 25 (15-37) U/L ALT 49 (12-78) U/L Alkaline Phosphatase 82 (45-117) U/L POC Troponin I 0.04 (0-0.045) ng/ml Troponin I 0.059 H* (0-0.045) ng/ml NT-Pro-B Natriuret Pep 1653 H (0-900) pg/ml Total Protein 7.4 (6.4-8.2) gm/dl Albumin 4.0 (3.4-5.0) gm/dl Globulin 3.4 (2.5-4.0) gm/dl Albumin/Globulin Ratio 1.2 (0.9-2) 07/28/18 Range/Units 17:35 WBC 6.41 (4.8-10.8) K/uL RBC 4.24 L (4.7-6.1) M/uL Hgb 13.0 L (14.0-18.0) g/dL Hct 39.2 L (42-52) % MCV 92.5 (80-100) fL MCH 30.7 (25-34) pg MCHC 33.2 (32-36) g/dL RDW Std Deviation 55.5 H (36.4-46.3) fL RDW Coeff of Jer 16.5 H (11.5-14.5) % Plt Count 189 (130-400) K/uL MPV 12.2 H (7.4-10.4) fL Immature Gran % (Auto) 0.2 % Neut % (Auto) 68.1 % Lymph % (Auto) 22.2 % [place] % (Auto) 5.9 % Eos % (Auto) 3.0 % Baso % (Auto) 0.6 % Immature Gran # (Auto) 0.01 (0.00-0.02) K/uL Neut # (Auto) 4.37 (1.4-6.5) K/uL Lymph # (Auto) 1.42 (1.2-3.4) K/uL [place] # (Auto) 0.38 (0.11-0.59) K/uL Eos # (Auto) 0.19 (0-0.5) K/uL Baso # (Auto) 0.04 (0-0.2) K/uL PT (9.0-12.0) Seconds INR (0.9-1.1) APTT (21.0-31.0) Seconds PTT Ratio Sodium (136-145) mmol/L Potassium (3.5-5.1) mmol/L Chloride (98-107) mmol/L Carbon Dioxide (21-32) mmol/L Anion Gap (3-11) BUN (7-18) mg/dl Creatinine (0.6-1.4) mg/dl Est Cr Clr Drug Dosing ml/min Est GFR ( Amer) Est GFR (Non-Af Amer) BUN/Creatinine Ratio (10-20) Glucose (70-99) mg/dl Calcium (8.5-10.1) mg/dl Magnesium (1.8-2.4) mg/dl Total Bilirubin (0.2-1) mg/dl AST (15-37) U/L ALT (12-78) U/L Alkaline Phosphatase (45-117) U/L POC Troponin I (0-0.045) ng/ml Troponin I (0-0.045) ng/ml NT-Pro-B Natriuret Pep (0-900) pg/ml Total Protein (6.4-8.2) gm/dl Albumin (3.4-5.0) gm/dl Globulin (2.5-4.0) gm/dl Albumin/Globulin Ratio (0.9-2) Diagnostic Findings Chest x-ray unchanged from 07/15/2018, heart remains mildly enlarged mild pulmonary vascular congestion noted and hazy appearance to lung bases which are unchanged. Medications Administered 40 Lasix ECG Rhythm: atrial flutter Code Status & VTE Plan Code Status Full Supervising Physician Co-Signing Physician Notes Pt seen/examined in conjunction with resident MD Anna Trevino. Orders and plan of admission formulated with resident. Hx HTN, HLD, DM II, gout, excess ETOH intake, GERD, obese, recent diagnosis of A -flutter and diastolic CHF. The pt was DCd two weeks prior after being diagnosed and treated for flutter and CHF. He returns with progressive SOB and states that he has been basically sedentary for 2 weeks. He had been to his primary MD for evaluation one day prior and was placed on a higher dose of B christophe. The pt was not DCd with a diuretic 2 weeks ago. His EF at the time was reported to be 35%. He has additionally, c/o pain in his LLE but denies unialteral edema or selling. He is notably anticoagulated with Eliquis. OE AAO x 3 - overweight, elderly male, no distress S1,2 tachy/reg, faint heart sounds CTAB NT, ND, BS + Minimal BL edema No deficits P: Pt is admitted for diuresis. He will need better HR control and may need to remain on a diuretic. His ecam is not especiasly impressive so that with his persistent lethargy, B christophe fatigue may be in the differential. He is anticoagulated with eliquis. He may benefit from card rehab as well Placed on a SS for DM Cont Losartan, Atorvastatin Resident Activity Tracking Resident Involvement: Resident Care Provided Care Provided: Adult [facility] Medicine _ (1) CHF exacerbation Heart failure type: unspecified Qualified Code(s): I50.9 - Heart failure, unspecified
[2018-07-28] MEDS ORDERED: POLYETHYLENE (MIRALAX) 17 GM PACK PO PRN (22:14)
[2018-07-28] MEDS ORDERED: GLUCOSE 40% GEL 15 GM TUBE PO PRN (22:14)
[2018-07-28] MEDS ORDERED: DEXTROSE 50% 50 ML SYRINGE IV PRN (22:14)
[2018-07-28] MEDS ORDERED: GLUCOSE 10 TABS/TUBE PO PRN (22:14)
[2018-07-28] MEDS ORDERED: CARBOHYDRATES FOR HYPOGLYCEMIA PO PRN (22:14)
[2018-07-28] MEDS ORDERED: MAGNESIUM HYDROXIDE SUSP 30 ML UDC PO PRN (22:14)
[2018-07-28] MEDS ORDERED: ALUMINUM/MAGNESIUM SUSP 30 ML UDC PO PRN (22:14)
[2018-07-28] MEDS ORDERED: NITROGLYCERIN SL 0.4 MG/TAB TAB SL PRN (22:14)
[2018-07-28] MEDS ORDERED: GLUCAGON FOR INJ 1 MG VIAL SQ PRN (22:14)
[2018-07-28] MEDS ORDERED: INSULIN GLARGINE SOLOSTAR 100 UNITS/ML 3 ML PEN SC ONE (23:00)
[2018-07-29] MEDS: INSULIN ASPART 100 UNITS/ML 3 ML PEN SC SCH ×5 (00:05→21:33)
[2018-07-29] MEDS: APIXABAN 5 MG TABLET PO SCH ×3 (00:06→19:22)
[2018-07-29] MEDS: METOPROLOL SUCC 50MG EXT REL TAB PO SCH ×3 (00:06→19:22)
[2018-07-29] MEDS ORDERED: INFLUENZA ADMINISTRATION CHARGE ONE (01:30)
[2018-07-29] MEDS ORDERED: INFLUENZA VIRUS QUAD VACCINE 0.5 ML SYR IM ONE (01:30)
--- NOTE | 2018-07-29 06:33 | Ultrasound Report ---
US venous doppler LE LT CLINICAL HISTORY: Left leg pain COMPARISON STUDY: No previous studies for comparison. FINDINGS: Real-time and color flow Doppler imaging were performed. Flow was seen within the femoral, popliteal and calf veins with no intraluminal thrombus demonstrated. The saphenous vein is patent. IMPRESSION: No evidence of left lower extremity DVT. Electronically signed by: Jr Pardaa M.D. 07/29/2018 6:31 AM
[2018-07-29 06:35] LABS: Basophils # (auto) 0.03 K/uL (0-0.2); Basophils % (auto) 0.4 %; Eosinophils # (auto) 0.25 K/uL (0-0.5); Eosinophils % (auto) 3.7 %; Hematocrit (blood only) 36.4 % (42-52); Hemoglobin 12.3 g/dL (14.0-18.0); Immature Granulocytes # (auto) 0.02 K/uL (0.00-0.02); Immature Granulocytes % (auto) 0.3 %; Lymphocytes # (auto) 1.45 K/uL (1.2-3.4); Lymphocytes % (auto) 21.4 %; Mean Corpuscular Hgb Conc 33.8 g/dL (32-36); Mean Corpuscular Volume 92.6 fL (80-100); Mean Platelet Volume 11.8 fL (7.4-10.4); Monocytes # (auto) 0.38 K/uL (0.11-0.59); Monocytes % (auto) 5.6 %; Neutrophils # (auto) 4.66 K/uL (1.4-6.5); Neutrophils % (auto) 68.6 %; Platelet Count 167 K/uL (130-400); RDW Coefficient of Variation 16.4 % (11.5-14.5); RDW Standard Deviation 55.2 fL (36.4-46.3); Red Blood Count 3.93 M/uL (4.7-6.1); White Blood Count 6.79 K/uL (4.8-10.8)
[2018-07-29 07:08] LABS: BUN Creatinine Ratio 19.6 (10-20); Creatinine Clr Calc Pharmacy 89.1 ml/min; Est GFR (African American) 75.1; Est GFR (Non-African American) 64.8; INR 1.2 (0.9-1.1); Partial Thromboplastin Ratio 1.2; Partial Thromboplastin Time 29.9 Seconds (21.0-31.0); Potassium 3.9 mmol/L (3.5-5.1); Prothrombin Time 11.8 Seconds (9.0-12.0)
[2018-07-29] MEDS: GLUCOSAMINE SULFATE 500 MG CAP PO SCH (07:39)
[2018-07-29] MEDS: ATORVASTATIN 40 MG TAB PO SCH (07:40)
[2018-07-29] MEDS: OMEGA-3 (PURIFIED FISH OIL) 1 GM CAP PO SCH (07:40)
[2018-07-29] MEDS: ASPIRIN 81 MG ECTAB PO SCH (07:40)
[2018-07-29] MEDS: CHOLECALCIFEROL 1,000 UNITS TAB PO SCH (07:40)
[2018-07-29] MEDS: ALLOPURINOL 300 MG TAB PO SCH (07:41)
[2018-07-29] MEDS: PANTOprazole 40 MG TAB PO SCH (07:41)
[2018-07-29] MEDS: LOSARTAN POTASSIUM 50 MG TAB PO SCH (07:41)
--- NOTE | 2018-07-29 08:14 | XRay Report ---
XR chest 2V routine HISTORY: shortness of breath COMPARISON: Chest 07/28/2018. FINDINGS: No pneumothorax. The heart remains mildly enlarged. Mild diffuse interstitial thickening pe rsists. Small bilateral pleural effusions, unchanged. IMPRESSION: No change in the mild interstitial pulmonary edema and small bilateral pleural effusions. Electronically signed by: William Echols M.D. 07/29/2018 8:13 AM
--- NOTE | 2018-07-29 08:56 | Cardiology Consultation ---
Date of Consultation July 29, 2018 Assessment & Plan (1) CHF exacerbation: He presents with what appears to be ongoing congestive heart failure, his BNP is elevated, he is quite short of breath and he feels better after initial diuresis. His weight was not appreciably higher this admission, although it was similar to his weight on his last presentation but has now dropped perhaps from diuresis for different scales. He feels better today, he will likely need a diuretic least a as needed basis. He did not seem to be aware of the fluid restriction, and I told him that he needs to restrict fluids in the future. We should also put him on a fluid restriction here. He has been drinking less beer , I think until we sort out his cardiomyopathy he should not drink any alcohol. I want to repeat his echocardiogram to make sure his left ventricular ejection fraction has not worsened, I would not expect it to increase a lot in the short period of time but with rate control it should not worsen unless there is some other cause of his cardiomyopathy. (2) Atrial flutter: He presents in atrial flutter, we do not know how long his atrial arrhythmia has been present since he has been feeling poorly since last . It is possible it is of shorter duration however. He has been on anticoagulation for around 12 days now, which is too early to perform cardioversion and less do a PRADEEP. There is an option if we cannot control things but considering he is on minimal medications I think we can probably control his heart failure and rate and I would prefer to wait and do the cardioversion several weeks. (3) Alcohol abuse: He does have a history of beer drinking, that may or may not be related to his cardiomyopathy. Under the circumstances I think would be better to not drink alcohol and he has cut down substantially but is still drinking it. History of Present Illness Reason for Consultation: SOB, AFlutter Attending Physician: Vipul Castillo MD History of Present Illness This is a very pleasant 63-year-old male who does have a history of hypertension, diabetes mellitus and GERD. He had not been feeling well since somewhere around 2017, he has developed shortness of breath and chest heaviness as well as palpitations and a rapid heart rate which has been more prominent for about one week or so. He came into the emergency room July 15, 2017 where he was noted to have atrial fibrillation with a rapid heart rate. He does have a history of alcohol use as well. He had a somewhat elevated troponin in a pattern which was a little bit worrisome as well as risk factors for coronary disease and a left ventricular ejection fraction which was felt to be 35-40% therefore cardiac catheterization was performed on July 17, 2018 but he had normal coronary arteries. His cardiomyopathy is possibly rate related, possibly due to alcohol use. His rate was controlled with metoprolol succinate 50 mg daily and Eliquis 5 mg twice a day was prescribed. He was diuresed and discharged for follow-up which is scheduled for August 04, 2018. He now presents with continued shortness of breath. By his description he did not feel much better during his hospitalization, and ever since going home has been having difficulty with dyspnea on exertion, orthopnea and difficulty sleeping due to shortness of breath. He has not had edema. He has been drinking a lot of fluid, he was a beer drinker he tells me and he has only been drinking occasional beers since he went home but he has been drinking a lot of water, seemingly not aware that he should restrict his water intake. He has not been having chest pain but he does describe chest tightness associated with shortness of breath. At the urging of his friend he came in yesterday and was admitted. He feels better now with initial diuresis although does not feel he is back to normal. He has not been aware of palpitations to much extent, his heart rate was somewhat fast during atrial flutter recently and his metoprolol was increased as an outpatient. Allergies Allergy/AdvReac Type Severity Reaction Status Date / Time No Known Allergies Allergy Unverified 07/28/18 19:08 Home Medications Home Medications Medication Instructions Recorded Confirmed Type allopurinol 300 mg PO DAILY 07/15/18 07/28/18 History aspirin 81 mg PO DAILY 07/15/18 07/28/18 History atorvastatin 40 mg PO DAILY 07/15/18 07/28/18 History cyanocobalamin (vitamin B-12) 0 mcg PO DAILY 07/15/18 07/28/18 History [Vitamin B-12] glucosamine sulfate [Glucosamine] 1,500 mg PO DAILY 07/15/18 07/28/18 History losartan 100 mg PO DAILY 07/15/18 07/28/18 History meloxicam 7.5 mg PO DAILY 07/15/18 07/28/18 History omega-3 fatty acids-fish oil [Fish 1 cap PO DAILY 07/15/18 07/28/18 History Oil] omeprazole 20 mg PO DAILY 07/15/18 07/28/18 History apixaban [Eliquis] 5 mg PO BID 30 Days #60 tab 07/17/18 07/28/18 Rx cholecalciferol (vitamin D3) 1,000 unit PO DAILY 07/28/18 07/28/18 History [Vitamin D3] metformin [Glucophage] 500 mg PO BID 07/28/18 07/28/18 History metoprolol succinate 50 mg PO BID 07/28/18 07/28/18 History Patient History Medical History History of gout Diabetes (Chronic) Hypercholesterolemia (Chronic) Hypertension (Chronic) Atrial flutter (Chronic) CHF (congestive heart failure) (Chronic) On anticoagulant therapy (Chronic) Surgical History History of appendectomy Social History Current Living Situation: Spouse current occupational status: employed 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 [employer] Other Information That Helps Us Care for You: No Feels Safe at Home: Yes Safety Concerns: Feels Safe At This Time Smoking Status: Former smoker Do You Dip or Chew Tobacco: No Second Hand Exposure: No Tobacco Cessation Education Requested by Patient: No Hx Alcohol Use: Yes Alcohol type: beer Alcohol Intake Frequency: 0-2 drinks per day Hx Substance Use: Yes substance use type: does not use Beliefs That Will Affect Care: None Preferred Language: Citizen Of [place] Communication Ability: Effective 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 Ongoing dyspnea on exertion, no exertional chest pain. Admits orthopnea and PND , no peripheral edema. No GI complaints, no bleeding on anticoagulation. No neurologic complaints such as TIA or stroke symptoms. Other systems negative. Physical Exam 2 Vital Signs (Past 24 Hours): Last Vital Signs Temp 36.9 C 07/29/18 07:09 Pulse 93 H 07/29/18 07:09 Resp 17 07/29/18 07:09 BP 117/83 07/29/18 07:09 Pulse Ox 97 07/29/18 07:09 Physical Exam: Constitutional: Alert, cooperative and in no distress. HEENT: Unremarkable Neck: No jugular venous distention, carotid pulses are irregular but otherwise normal and equal bilaterally without bruits. Pulmonary: Decreased breath sounds bilaterally but no rales. Cardiac: Irregular rhythm with no murmur, gallop or rub. Abdomen: Soft, nontender with normal bowel sounds. Extremities: No edema. Distal pulses intact. Neurologic: No focal findings. Gait is steady. Skin: No rash, ecchymoses or petechiae. Results & Data Diagnostic Findings Telemetry: Atrial flutter, heart rate generally reasonably well controlled, under 100 for the most part _ (1) CHF exacerbation Heart failure type: unspecified Qualified Code(s): I50.9 - Heart failure, unspecified
[2018-07-29] MEDS: INSULIN GLARGINE SOLOSTAR 100 UNITS/ML 3 ML PEN SC SCH ×2 (11:45→21:33)
[2018-07-29] MEDS: FUROSEMIDE 20 MG TAB PO SCH (13:03)
--- NOTE | 2018-07-29 20:24 | Hospitalist Progress Note ---
Date of Service July 29, 2018 Assessment & Plan (1) Acute on chronic systolic heart failure: Patient with ongoing decompensation. Cont diuretics. Cont BB. Cont ARB. Appreciate cardiology consultation. During previous admission CAD was ruled out as contributor to his CHF. A. flutter, etoh abuse, etc could all contribute to severe CHF. Present on Admission?: Yes (2) Atrial flutter: rates acceptable at this time with beta christophe. cont eliquis BID. defer any other Rx to cardiology. (3) Alcohol abuse: no signs/symptoms of DTs/withdrawal at this time. place on thiamine 200 BID by mouth. (4) DM w/o complication type II, uncontrolled: add lantus BID tighten novolog (5) Hypertension: cont home meds (6) Hypercholesterolemia: statin (7) Mitral regurgitation: mod-severe repeat echo with ?mitral valve lesion --- this is probably calcium, but will check blood cx's to r/o infectious endocarditis is MR due to his severe LV dysfunction or is it causing the LV dysfunction itself? (8) DVT prophylaxis: eliquis BID Subjective patient continues with MEYERS, orthopnea, PND he is frustrated about his symptoms anxious to get back to work -- works at a [employer] shop near [place] states he has not drank any etoh in 1 week Constitutional: no fever Respiratory: no cough Cardiovascular: no chest pain Gastrointestinal: no abdominal pain Physical Exam 2 Vital Signs (Past 24 Hours): Last Vital Signs Temp 36.6 C 07/29/18 19:18 Pulse 96 H 07/29/18 19:18 Resp 16 07/29/18 19:18 BP 116/83 07/29/18 19:18 Pulse Ox 95 07/29/18 19:18 Constitutional: well developed and well nourished; no acute distress ENMT: external ear and nose normal, oropharynx normal Respiratory: Auscultation: + diminished lung sounds (bases) and + rales (bases ) Cardiovascular: Rate/Rhythm: regular rate; + abnormal rhythm (irregular) Heart Sounds: normal S1 and normal S2; no murmur Vessels: + JVD (to nearly the jaw), posterior tibial pulses present and dorsalis pedis pulses present Extremities: + edema Gastrointestinal (Abdomen): normal bowel sounds, soft, nontender, no hepatosplenomegaly Psychiatric: A+Ox3, euthymic affect Results & Data Laboratory Results Laboratory Results - last 24 hr 07/28/18 07/29/18 07/29/18 22:27 06:06 06:06 WBC 6.79 RBC 3.93 L Hgb 12.3 L Hct 36.4 L MCV 92.6 MCH 31.3 MCHC 33.8 RDW Std Deviation 55.2 H RDW Coeff of Jer 16.4 H Plt Count 167 MPV 11.8 H Immature Gran % (Auto) 0.3 Neut % (Auto) 68.6 Lymph % (Auto) 21.4 Williams % (Auto) 5.6 Eos % (Auto) 3.7 Baso % (Auto) 0.4 Immature Gran # (Auto) 0.02 Neut # (Auto) 4.66 Lymph # (Auto) 1.45 Williams # (Auto) 0.38 Eos # (Auto) 0.25 Baso # (Auto) 0.03 PT 11.8 INR 1.2 H APTT 29.9 PTT Ratio 1.2 Sodium Potassium Chloride Carbon Dioxide Anion Gap BUN Creatinine Est Cr Clr Drug Dosing Est GFR ( Amer) Est GFR (Non-Af Amer) BUN/Creatinine Ratio Glucose POC Glucose 231 H Calcium 07/29/18 07/29/18 07/29/18 06:06 07:20 11:10 WBC RBC Hgb Hct MCV MCH MCHC RDW Std Deviation RDW Coeff of Jer Plt Count MPV Immature Gran % (Auto) Neut % (Auto) Lymph % (Auto) Williams % (Auto) Eos % (Auto) Baso % (Auto) Immature Gran # (Auto) Neut # (Auto) Lymph # (Auto) Williams # (Auto) Eos # (Auto) Baso # (Auto) PT INR APTT PTT Ratio Sodium 138 Potassium 3.9 Chloride 105 Carbon Dioxide 25 Anion Gap 9.0 BUN 23 H Creatinine 1.18 Est Cr Clr Drug Dosing 89.1 Est GFR ( Amer) 75.1 Est GFR (Non-Af Amer) 64.8 BUN/Creatinine Ratio 19.6 Glucose 252 H POC Glucose 256 H 247 H Calcium 9.0 07/29/18 07/29/18 16:15 20:16 WBC RBC Hgb Hct MCV MCH MCHC RDW Std Deviation RDW Coeff of Jer Plt Count MPV Immature Gran % (Auto) Neut % (Auto) Lymph % (Auto) Williams % (Auto) Eos % (Auto) Baso % (Auto) Immature Gran # (Auto) Neut # (Auto) Lymph # (Auto) Williams # (Auto) Eos # (Auto) Baso # (Auto) PT INR APTT PTT Ratio Sodium Potassium Chloride Carbon Dioxide Anion Gap BUN Creatinine Est Cr Clr Drug Dosing Est GFR ( Amer) Est GFR (Non-Af Amer) BUN/Creatinine Ratio Glucose POC Glucose 192 H 191 H Calcium _ (1) Atrial flutter Atrial flutter type: unspecified Qualified Code(s): I48.92 - Unspecified atrial flutter (2) DM w/o complication type II, uncontrolled Glycemic state: with hyperglycemia Qualified Code(s): E11.65 - Type 2 diabetes mellitus with hyperglycemia (3) Hypertension Hypertension type: essential hypertension Qualified Code(s): I10 - Essential (primary) hypertension (4) Mitral regurgitation Cardiac valve disease etiology: etiology unspecified Qualified Code(s): I34.0 - Nonrheumatic mitral (valve) insufficiency
[2018-07-29] MEDS: ACETAMINOPHEN 325 MG TAB PO PRN (21:37)
[2018-07-30 06:24] LABS: Calcium 9.2 mg/dl (8.5-10.1); Creatinine Clr Calc Pharmacy 108.1 ml/min; Est GFR (African American) 95.2; Est GFR (Non-African American) 82.2; Magnesium 1.7 mg/dl (1.8-2.4); Potassium 3.7 mmol/L (3.5-5.1)
[2018-07-30] MEDS: INSULIN ASPART 100 UNITS/ML 3 ML PEN SC SCH ×4 (08:02→21:07)
[2018-07-30] MEDS: INSULIN GLARGINE SOLOSTAR 100 UNITS/ML 3 ML PEN SC SCH ×2 (08:02→21:10)
[2018-07-30] MEDS: LOSARTAN POTASSIUM 50 MG TAB PO SCH (08:04)
[2018-07-30] MEDS: ATORVASTATIN 40 MG TAB PO SCH (08:04)
[2018-07-30] MEDS: ALLOPURINOL 300 MG TAB PO SCH (08:04)
[2018-07-30] MEDS: CHOLECALCIFEROL 1,000 UNITS TAB PO SCH (08:04)
[2018-07-30] MEDS: METOPROLOL SUCC 50MG EXT REL TAB PO SCH (08:04)
[2018-07-30] MEDS: ASPIRIN 81 MG ECTAB PO SCH (08:04)
[2018-07-30] MEDS: PANTOprazole 40 MG TAB PO SCH (08:04)
[2018-07-30] MEDS: GLUCOSAMINE SULFATE 500 MG CAP PO SCH (08:05)
[2018-07-30] MEDS: APIXABAN 5 MG TABLET PO SCH ×2 (08:05→21:08)
[2018-07-30] MEDS: FUROSEMIDE 20 MG TAB PO SCH (08:05)
[2018-07-30] MEDS: OMEGA-3 (PURIFIED FISH OIL) 1 GM CAP PO SCH (08:05)
[2018-07-30] MEDS: THIAMINE HCL 100 MG TAB PO SCH ×2 (08:07→21:06)
[2018-07-30] MEDS ORDERED: MAGNESIUM SULFATE / D5W 1 GM/100 ML BAG IV ONE (08:35)
[2018-07-30] MEDS: MAGNESIUM OXIDE 400 MG TAB PO SCH ×2 (09:06→21:07)
[2018-07-30] MEDS: FUROSEMIDE 20 MG in SYRINGE 0 ML IV SCH (09:10)
--- NOTE | 2018-07-30 09:19 | Cardiology Progress Note ---
Date of Service July 30, 2018 Assessment & Plan (1) CHF exacerbation: He presented with worsening heart failure with no appreciable weight gain , now with worsening left ventricular function I suspect he has a progressive cardiomyopathy to at least partially explain his symptoms. In addition we should diurese, he is not diuresed a lot although his weight is down somewhat. He does not have edema but probably does have an element of fluid overload. (2) Atrial flutter: He presents in atrial flutter, we do not know how long his atrial arrhythmia has been present since he has been feeling poorly since last . It is possible it is of shorter duration however. He has been on anticoagulation for around 2 weeks now, which is too early to perform cardioversion unless we do a PRADEEP. There is an option if we cannot control things but considering he is on minimal medications I think we can probably control his heart failure and rate and I would prefer to wait and do the cardioversion in several weeks. I doubt the rhythm itself is a primary cause of his cardiomyopathy. (3) Alcohol abuse: He does have a history of beer drinking, that may or may not be related to his cardiomyopathy. Under the circumstances I think would be better to not drink alcohol and he has cut down substantially but is still drinking it. He is agreeable to that. (4) Idiopathic cardiomyopathy: He has a cardiomyopathy of uncertain etiology. It is not ischemic ( catheterization last hospitalization showed no coronary artery disease) but it has progressed. If it was rate related I doubt it would have progressed since his rate has been relatively well controlled, could be related to his mitral regurgitation but that is long-standing and I doubt that is the primary culprit either. It could be alcoholic but he has cut back substantially on alcohol and has not had very much to drink at all in the last several weeks so that seems unlikely also. I am going to draw some blood tests for other causes of cardiomyopathy, but it may end up being of unknown etiology. I do want to change his metoprolol to carvedilol (I had him on metoprolol because of its rate controlling benefit and had hoped that his left ventricular function would improve but since it is not I would prefer to use carvedilol), I would also like to place him on Entresto. He is on an ARB so we should be able to start the Entresto tomorrow morning, he received his ARB today. I explained to him that this is long-term treatment. I agree with more aggressive diuresis. Subjective He continues to be short of breath, especially with exertion, but some dyspnea on exertion. He feels that he has not been drinking very much fluid over the past day or so (I put him on a fluid restriction yesterday therefore that suggests that he was drinking too much before). He is anxious to get home but is willing to stay until he feels better. Physical Exam 2 Vital Signs (Past 24 Hours): Last Vital Signs Temp 36.3 C L 07/30/18 04:25 Pulse 77 07/30/18 04:25 Resp 17 07/30/18 04:25 BP 105/67 07/30/18 04:25 Pulse Ox 92 07/30/18 04:25 Physical Exam: Constitutional: Alert, cooperative and in no distress. Pulmonary: Clear to auscultation bilaterally. Cardiac: Irregular rhythm with a grade 2/6 holosystolic murmur at the apex, no gallop or rub. Abdomen: Soft, nontender with normal bowel sounds. Extremities: No edema. Skin: No rash, ecchymoses or petechiae. Results & Data Diagnostic Findings Telemetry: Atrial flutter with a fairly well-controlled heart rate, no significant tachycardia or bradycardia. Electrocardiogram: This morning atrial flutter with a ventricular response of 86 bpm. No acute changes. Echocardiogram: His left ventricular ejection fraction appears to have worsened over the last 2 weeks, his ejection fraction is now in the 25-30% range. Mitral regurgitation continues. _ (1) CHF exacerbation Heart failure type: unspecified Qualified Code(s): I50.9 - Heart failure, unspecified (2) Atrial flutter Atrial flutter type: unspecified Qualified Code(s): I48.92 - Unspecified atrial flutter
[2018-07-30] MEDS ORDERED: FUROSEMIDE 20 MG in SYRINGE 0 ML IV ONE (17:30)
--- NOTE | 2018-07-30 18:18 | Hospitalist Progress Note ---
Date of Service July 30, 2018 Assessment & Plan (1) Acute on chronic systolic heart failure: Clinically improved. Give IV lasix this am and again this afternoon. Cont BB. Cont ARB. Appreciate cardiology consultation. During previous admission CAD was ruled out as contributor to his CHF. A. flutter, etoh abuse, etc could all contribute to severe CHF. Could mitral regurg also be contributing to this CHF? Defer additional w/u to cardiology. WIll need sleep study after d/c in light of chronic snoring. (2) Atrial flutter: rates acceptable with beta christophe. cont eliquis BID. (3) Alcohol abuse: no signs/symptoms of DTs/withdrawal at this time. cont thiamine 200 BID by mouth. again we talked today about abstinence after discharge. (4) DM w/o complication type II, uncontrolled: increase lantus BID to 15 units am/pm tighten novolog once again (5) Hypertension: cont home meds controlled (6) Hypercholesterolemia: statin (7) Mitral regurgitation: mod-severe repeat echo with ?mitral valve lesion --- this is probably calcium, but blood cx 's obtained to r/o infectious endocarditis - chances of such are very low is MR due to his severe LV dysfunction or is it causing the LV dysfunction itself? I discussed this with cardiology today patient reports long-standing MV disease (8) DVT prophylaxis: eliquis BID progressing Subjective feels better less orthopnea, PND, and dyspnea on exertion with IV lasix this am had copious UOP tele - rate-controlled a. flutter Respiratory: no cough Cardiovascular: no chest pain Gastrointestinal: no abdominal pain Physical Exam 2 Vital Signs (Past 24 Hours): Last Vital Signs Temp 36.3 C L 07/30/18 15:04 Pulse 95 H 07/30/18 15:16 Resp 20 07/30/18 15:04 BP 133/81 07/30/18 15:04 Pulse Ox 96 07/30/18 15:04 Constitutional: well developed and well nourished; no acute distress ENMT: external ear and nose normal, oropharynx normal Respiratory: Auscultation: + diminished lung sounds (bases but improved airation today) and + rales (bases but also improved today) Cardiovascular: Rate/Rhythm: regular rate; + abnormal rhythm (irregular) Heart Sounds: normal S1, normal S2 and + murmur (1/6 LLSB) Vessels: posterior tibial pulses present and dorsalis pedis pulses present; no JVD ( resolved today) Extremities: no edema Gastrointestinal (Abdomen): normal bowel sounds, soft, nontender, no hepatosplenomegaly Psychiatric: A+Ox3, euthymic affect Results & Data Laboratory Results Laboratory Results - last 24 hr 07/30/18 07/30/18 07/30/18 05:33 07:20 10:03 Sodium 139 Potassium 3.7 Chloride 107 Carbon Dioxide 26 Anion Gap 6.0 BUN 22 H Creatinine 0.97 Est Cr Clr Drug Dosing 108.1 Est GFR ( Amer) 95.2 Est GFR (Non-Af Amer) 82.2 BUN/Creatinine Ratio 23.0 H Glucose 195 H POC Glucose 193 H Calcium 9.2 Magnesium 1.7 L Iron 57 TIBC 360 Ferritin 142.0 07/30/18 07/30/18 07/30/18 10:53 16:04 20:07 Sodium Potassium Chloride Carbon Dioxide Anion Gap BUN Creatinine Est Cr Clr Drug Dosing Est GFR ( Amer) Est GFR (Non-Af Amer) BUN/Creatinine Ratio Glucose POC Glucose 296 H 187 H 154 H Calcium Magnesium Iron TIBC Ferritin _ (1) Atrial flutter Atrial flutter type: unspecified Qualified Code(s): I48.92 - Unspecified atrial flutter (2) DM w/o complication type II, uncontrolled Coma presence: Glycemic state: with hyperglycemia Qualified Code(s): E11.65 - Type 2 diabetes mellitus with hyperglycemia (3) Mitral regurgitation Cardiac valve disease etiology: etiology unspecified Qualified Code(s): I34.0 - Nonrheumatic mitral (valve) insufficiency (4) Hypertension Hypertension type: essential hypertension Qualified Code(s): I10 - Essential (primary) hypertension
[2018-07-30] MEDS: CARVEDILOL 12.5 MG TAB PO SCH (21:06)
[2018-07-30] MEDS: ACETAMINOPHEN 325 MG TAB PO PRN (21:11)
[2018-07-31 07:49] LABS: BUN Creatinine Ratio 21.5 (10-20); Est GFR (African American) 79.2; Est GFR (Non-African American) 68.3; Magnesium 1.7 mg/dl (1.8-2.4); Potassium 3.8 mmol/L (3.5-5.1)
[2018-07-31] MEDS: GLUCOSAMINE SULFATE 500 MG CAP PO SCH (08:12)
[2018-07-31] MEDS: CHOLECALCIFEROL 1,000 UNITS TAB PO SCH (08:13)
[2018-07-31] MEDS: ALLOPURINOL 300 MG TAB PO SCH (08:13)
[2018-07-31] MEDS: ATORVASTATIN 40 MG TAB PO SCH (08:13)
[2018-07-31] MEDS: PANTOprazole 40 MG TAB PO SCH (08:13)
[2018-07-31] MEDS: MAGNESIUM OXIDE 400 MG TAB PO SCH ×2 (08:14→20:43)
[2018-07-31] MEDS: OMEGA-3 (PURIFIED FISH OIL) 1 GM CAP PO SCH (08:14)
[2018-07-31] MEDS: APIXABAN 5 MG TABLET PO SCH ×2 (08:14→20:40)
[2018-07-31] MEDS: THIAMINE HCL 100 MG TAB PO SCH ×2 (08:15→20:42)
[2018-07-31] MEDS: ASPIRIN 81 MG ECTAB PO SCH (08:15)
[2018-07-31] MEDS: CARVEDILOL 12.5 MG TAB PO SCH ×2 (08:16→20:40)
[2018-07-31] MEDS: SACUBITRIL-VALSARTAN 49/51 MG TAB PO SCH ×2 (08:16→20:41)
[2018-07-31] MEDS: INSULIN GLARGINE SOLOSTAR 100 UNITS/ML 3 ML PEN SC SCH ×2 (08:17→21:10)
[2018-07-31] MEDS: FUROSEMIDE 20 MG in SYRINGE 0 ML IV SCH (08:17)
[2018-07-31] MEDS: INSULIN ASPART 100 UNITS/ML 3 ML PEN SC SCH ×4 (08:18→20:38)
[2018-07-31] MEDS: MAGNESIUM SULFATE / D5W 1 GM/100 ML BAG IV SCH ×2 (08:30→09:52)
[2018-07-31] MEDS: ACETAMINOPHEN 325 MG TAB PO PRN (11:51)
[2018-07-31] MEDS ORDERED: FUROSEMIDE 20 MG in SYRINGE 0 ML IV STA (17:15)
[2018-07-31] MEDS ORDERED: POTASSIUM CHLORIDE 10 MEQ TABCR PO STA (17:16)
--- NOTE | 2018-07-31 17:38 | Cardiology Progress Note ---
Date of Service July 31, 2018 Assessment & Plan (1) CHF exacerbation: Clinically improved. He affected a reasonable diuresis on his current dose of intravenous Lasix. He was started on interested which has some diuretic effect. At the time of discharge he could be considered for a daily dose of Lasix, perhaps 20 mg. (2) Atrial flutter: Continued atrial flutter. Rate control appears to be adequate he will be continued on systemic anticoagulation and consider for cardioversion in a couple more weeks. (3) Alcohol abuse: He does have a history of beer drinking, that may or may not be related to his cardiomyopathy. Under the circumstances I think would be better to not drink alcohol and he has cut down substantially but is still drinking it. He is agreeable to that. (4) Idiopathic cardiomyopathy: Better compensated today. Currently on beta-blockade and started on Entresto. He did have some mild hypotension possibly related to initiation of Entresto. I think would be reasonable to continue on Entresto in beta-blockade at the time of discharge. (5) Mitral regurgitation: He appears to have severe mitral regurgitation. This likely does contribute to his symptoms. However, in the setting of reduced LV systolic function he is a poor candidate for valve repair. I suspect this is a functional regurgitation due to his cardiomyopathy. Hopefully with improvement of level E function will see improvement in his regurgitation as well. If not, he may be a good candidate for MitraClip. Given his blood pressure low will also improved the overall hemodynamics Subjective The patient is feeling much better today. He states that he finally has improvement in his breathing. He was able ambulate around the orozco in had minimal dyspnea. He was able to sleep lying flat as well. He did have some mild transient dizziness while sitting in better earlier today. This lasted a few minutes and resolved. Physical Exam 2 Vital Signs (Past 24 Hours): Last Vital Signs Temp 36.8 C 07/31/18 15:42 Pulse 73 07/31/18 15:42 Resp 18 07/31/18 15:42 BP 100/67 07/31/18 15:42 Pulse Ox 95 07/31/18 15:42 Physical Exam: The patient is alert and oriented. Mood and affect appeared normal. He answered all questions appropriately. HEENT: Pupils are equal and reactive to light and accommodation. Extraocular movements are intact. The sclerae are anicteric. Neuro: Cranial nerves intact Neck: Patient's neck is supple. He has palpable carotid pulses bilaterally without bruits on auscultation. There is no evidence of jugular venous distention. The thyroid is not enlarged. Lungs: Clear to auscultation bilaterally. He has good air movement without use of accessory muscles. No rales wheezes or rhonchi. Cardiac: Heart demonstrates an irregular rate and rhythm. Normal S1 and S2. No murmurs on examination. Pulses: The patient has palpable radial pulses bilaterally that are equal in intensity Extremities: There was no evidence of hypoperfusion. There is no cyanosis or clubbing. There is no edema. Skin: I did not appreciate any rashes on examination today. Results & Data Laboratory Results Abnormal Lab Results 07/30/18 07/31/18 07/31/18 20:07 06:32 07:28 Sodium 139 Potassium 3.8 Chloride 105 Carbon Dioxide 28 Anion Gap 6.0 BUN 24 H Creatinine 1.13 Est Cr Clr Drug Dosing 92.0 Est GFR ( Amer) 79.2 Est GFR (Non-Af Amer) 68.3 BUN/Creatinine Ratio 21.5 H Glucose 131 H POC Glucose 154 H 142 H Calcium 9.0 Magnesium 1.7 L 07/31/18 07/31/18 11:04 16:22 Sodium Potassium Chloride Carbon Dioxide Anion Gap BUN Creatinine Est Cr Clr Drug Dosing Est GFR ( Amer) Est GFR (Non-Af Amer) BUN/Creatinine Ratio Glucose POC Glucose 195 H 212 H Calcium Magnesium _ (1) CHF exacerbation Heart failure type: unspecified Qualified Code(s): I50.9 - Heart failure, unspecified (2) Atrial flutter Atrial flutter type: unspecified Qualified Code(s): I48.92 - Unspecified atrial flutter (3) Mitral regurgitation Cardiac valve disease etiology: etiology unspecified Qualified Code(s): I34.0 - Nonrheumatic mitral (valve) insufficiency
--- NOTE | 2018-07-31 20:30 | Hospitalist Progress Note ---
Date of Service July 31, 2018 Assessment & Plan (1) Acute on chronic systolic heart failure: Clinically improved. Suspect we are approaching euvolemia. Give IV lasix this am and again this afternoon then hold additional IV lasix thereafter. Recheck BMP/mag in am. Cont BB. Cont ARB. Appreciate cardiology consultation. During previous admission CAD was ruled out as contributor to his CHF. A. flutter, etoh abuse, etc could all contribute to severe CHF. Uncertain if mitral regurgitation is contributing to CHF as well (or is it a functional regurgitation?). WIll need sleep study after d/c in light of chronic snoring. (2) Atrial flutter: rates acceptable with beta christophe. cont eliquis BID. (3) Alcohol abuse: no signs/symptoms of DTs/withdrawal at this time. cont thiamine 200 BID by mouth. (4) DM w/o complication type II, uncontrolled: increase lantus BID to 20 units am/pm tighten novolog once again (5) Hypertension: cont home meds controlled (6) Hypercholesterolemia: statin (7) Mitral regurgitation: mod-severe repeat echo with ?mitral valve lesion --- this is probably calcium, but blood cx 's obtained to r/o infectious endocarditis - chances of such are very low; blood cx's negative to date will defer to cardiology if anything is needed for the MV regurgitation (8) Hypomagnesemia: replace, repeat level in am (9) DVT prophylaxis: eliquis BID home tomorrow? Subjective patient with improved breathing overnight. he is able to lie flat in bed comfortably. still with MEYERS however but this, too, is improved. denies chest pain. denies cough. a. flutter rates 120 or so with walking. slight dizziness at times. Constitutional: no fever Respiratory: + dyspnea on exertion; no cough and no dyspnea Cardiovascular: no chest pain Gastrointestinal: no abdominal pain Physical Exam 2 Vital Signs (Past 24 Hours): Last Vital Signs Temp 36.2 C L 07/31/18 19:20 Pulse 61 07/31/18 19:20 Resp 16 07/31/18 19:20 BP 102/64 07/31/18 19:20 Pulse Ox 95 07/31/18 19:20 Constitutional: well developed and well nourished; no acute distress ENMT: external ear and nose normal, oropharynx normal Respiratory: Auscultation: + diminished lung sounds (bases but improved airation today); no rales and no wheezes Cardiovascular: Rate/Rhythm: regular rate; + abnormal rhythm (irregular) Heart Sounds: normal S1, normal S2 and + murmur (1/6 LLSB) Vessels: posterior tibial pulses present and dorsalis pedis pulses present; no JVD Extremities: no edema Gastrointestinal (Abdomen): normal bowel sounds, soft, nontender, no hepatosplenomegaly Psychiatric: A+Ox3, euthymic affect Results & Data Laboratory Results Laboratory Results - last 24 hr 07/30/18 07/31/18 07/31/18 10:03 06:32 07:28 Sodium 139 Potassium 3.8 Chloride 105 Carbon Dioxide 28 Anion Gap 6.0 BUN 24 H Creatinine 1.13 Est Cr Clr Drug Dosing 92.0 Est GFR ( Amer) 79.2 Est GFR (Non-Af Amer) 68.3 BUN/Creatinine Ratio 21.5 H Glucose 131 H POC Glucose 142 H Calcium 9.0 Magnesium 1.7 L Angiotensin Convert Enz 16 07/31/18 07/31/18 07/31/18 11:04 16:22 20:17 Sodium Potassium Chloride Carbon Dioxide Anion Gap BUN Creatinine Est Cr Clr Drug Dosing Est GFR ( Amer) Est GFR (Non-Af Amer) BUN/Creatinine Ratio Glucose POC Glucose 195 H 212 H 205 H Calcium Magnesium Angiotensin Convert Enz _ (1) Atrial flutter Atrial flutter type: unspecified Qualified Code(s): I48.92 - Unspecified atrial flutter (2) DM w/o complication type II, uncontrolled Glycemic state: with hyperglycemia Coma presence: Qualified Code(s): E11.65 - Type 2 diabetes mellitus with hyperglycemia (3) Hypertension Hypertension type: essential hypertension Qualified Code(s): I10 - Essential (primary) hypertension (4) Mitral regurgitation Cardiac valve disease etiology: etiology unspecified Qualified Code(s): I34.0 - Nonrheumatic mitral (valve) insufficiency
[2018-08-01 07:13] LABS: BUN Creatinine Ratio 24.2 (10-20); Calcium 9.2 mg/dl (8.5-10.1); Creatinine Clr Calc Pharmacy 103.7 ml/min; Est GFR (African American) 91.8; Est GFR (Non-African American) 79.2; Magnesium 2.1 mg/dl (1.8-2.4); Potassium 3.8 mmol/L (3.5-5.1)
[2018-08-01] MEDS: MAGNESIUM OXIDE 400 MG TAB PO SCH (08:08)
[2018-08-01] MEDS: ATORVASTATIN 40 MG TAB PO SCH (08:08)
[2018-08-01] MEDS: ASPIRIN 81 MG ECTAB PO SCH (08:08)
[2018-08-01] MEDS: ALLOPURINOL 300 MG TAB PO SCH (08:08)
[2018-08-01] MEDS: OMEGA-3 (PURIFIED FISH OIL) 1 GM CAP PO SCH (08:08)
[2018-08-01] MEDS: PANTOprazole 40 MG TAB PO SCH (08:09)
[2018-08-01] MEDS: CHOLECALCIFEROL 1,000 UNITS TAB PO SCH (08:09)
[2018-08-01] MEDS: THIAMINE HCL 100 MG TAB PO SCH (08:09)
[2018-08-01] MEDS: CARVEDILOL 12.5 MG TAB PO SCH (08:09)
[2018-08-01] MEDS: APIXABAN 5 MG TABLET PO SCH (08:10)
[2018-08-01] MEDS: SACUBITRIL-VALSARTAN 49/51 MG TAB PO SCH (08:10)
[2018-08-01] MEDS: GLUCOSAMINE SULFATE 500 MG CAP PO SCH (08:10)
[2018-08-01] MEDS: INSULIN GLARGINE SOLOSTAR 100 UNITS/ML 3 ML PEN SC SCH (08:10)
[2018-08-01] MEDS: INSULIN ASPART 100 UNITS/ML 3 ML PEN SC SCH (08:11)
[2018-08-01] MEDS ORDERED: CYANOCOBALAMIN 500 MCG TABLET (VITAMIN B-12) PO SCH (09:00)
[2018-08-01] MEDS: FUROSEMIDE 20 MG in SYRINGE 0 ML IV SCH (09:58)
--- NOTE | 2018-08-01 10:30 | Cardiology Progress Note ---
Date of Service August 01, 2018 Assessment & Plan (1) Acute on chronic systolic heart failure: He appears euvolemic. From a cardiac standpoint, he can be discharged on Lasix 40 mg once daily. Close follow-up is strongly recommended. He will be enrolled in to the heart failure transitional program. Cardiology office will arrange for an appointment to be made Friday returned to the office on Friday. Recommend that he has seen within the next week. We discussed the importance of a low-sodium diet, less than 2000 mg daily. He demonstrated awareness that he should weigh himself daily. He was advised to refrain from taking meloxicam/ NSAIDs as this can worsen heart failure. (2) Idiopathic cardiomyopathy: Could be secondary to tachycardia, alcohol abuse, or idiopathic verses other etiology. Nonischemic based on cardiac catheterization. Continue carvedilol 12.5 mg twice daily for now. Would consider titrating this as an outpatient. Continue Entresto at current dose, and this can be further titrated as well as an outpatient as appropriate. (3) Mitral regurgitation: Moderate to severe mitral regurgitation reported on 07/15/2018. Hopefully LV systolic function improves and with improvement of his volume status, mitral regurgitation may also improve. This should be followed as an outpatient. (4) Atrial flutter: There are tentative plans to perform cardioversion after appropriate therapeutic anticoagulation therapy. Continue follow-up with Dr. Mckeon, his primary social media marketer. Continue anticoagulation. Heart rate is reasonably controlled and can consider titrating carvedilol as an outpatient. (5) Alcohol abuse: We discussed the fact that alcohol abuse could be playing a major role in his cardiomyopathy and heart failure. He was advised to avoid alcohol consumption. Disposition: From a cardiac perspective, he can be discharged home with very close follow-up through the Heart failure program. Patient care discussed with Dr. Warren of the primary hospitalist service. Subjective He denies shortness of breath, orthopnea, dyspnea with exertion, chest pain, palpitations, edema, or bleeding. He felt tired after walking but denies shortness of breath. He took a walk yesterday with Dr. Warren, and Dr. Walden stated that his heart rate max out in the 120s. I was asked to see the patient today as Dr. Warren is contemplating discharge. Review of systems: As above. Physical Exam 2 Vital Signs (Past 24 Hours): Last Vital Signs Temp 36.9 C 08/01/18 07:55 Pulse 73 08/01/18 07:55 Resp 18 08/01/18 07:55 BP 121/62 08/01/18 07:55 Pulse Ox 96 08/01/18 07:55 Intake & Output 07/30/18 07/31/18 08/01/18 08/02/18 06:59 06:59 06:59 06:59 Intake Total 1045 / 1045 1040 / 1040 1170 / 1170 Output Total 750 / 750 2650 / 2650 2550 / 2550 Balance 295 / 295 -1610 / -1610 -1380 / -1380 Weight 118.2 kg 115.9 kg 115.5 kg Physical Exam: Gen.: No acute distress. Alert and oriented. HEENT: Anicteric sclera. Neck: No appreciable JVD or hepatic jugular reflux. Cardiac: Irregularly irregular. Normal S1-S2. No murmurs, rubs, or gallops. Pulmonary: Clear to auscultation bilaterally without wheezes, rales, or rhonchi. Abdomen: Soft, nontender, nondistended, with normoactive bowel sounds. No bruits noted. Extremities: No pitting edema or cyanosis. Psychiatric: Affect appears appropriate. Results & Data Laboratory Results Laboratory Results - last 24 hr 07/30/18 07/31/18 07/31/18 10:03 11:04 16:22 Sodium Potassium Chloride Carbon Dioxide Anion Gap BUN Creatinine Est Cr Clr Drug Dosing Est GFR ( Amer) Est GFR (Non-Af Amer) BUN/Creatinine Ratio Glucose POC Glucose 195 H 212 H Calcium Magnesium Angiotensin Convert Enz 16 07/31/18 08/01/18 08/01/18 20:17 06:06 07:32 Sodium 138 Potassium 3.8 Chloride 105 Carbon Dioxide 29 Anion Gap 4.0 BUN 24 H Creatinine 1.00 Est Cr Clr Drug Dosing 103.7 Est GFR ( Amer) 91.8 Est GFR (Non-Af Amer) 79.2 BUN/Creatinine Ratio 24.2 H Glucose 155 H POC Glucose 205 H 177 H Calcium 9.2 Magnesium 2.1 Angiotensin Convert Enz Diagnostic Findings Telemetry personally reviewed: Atrial flutter with reasonable rate control. No significant pauses. Medications Administered Current Inpatient Medications Acetaminophen (Tylenol) 650 mg PO Q4H PRN PRN Reason: Pain or Fever Stop: 08/27/18 22:13 Last Admin: 07/31/18 11:51 Dose: 650 mg Al Hydrox/Mg Hydrox/Simethicone (Maalox) 15 ml PO Q4H PRN PRN Reason: Dyspepsia Stop: 08/27/18 22:13 Allopurinol (Zyloprim) 300 mg PO DAILY [facility] Stop: 08/28/18 08:59 Last Admin: 08/01/18 08:08 Dose: 300 mg Apixaban (Eliquis) 5 mg PO BID [facility] Stop: 08/27/18 22:13 Last Admin: 08/01/18 08:10 Dose: 5 mg Aspirin (Ecotrin Ectab) 81 mg PO DAILY [facility] Stop: 08/28/18 08:59 Last Admin: 08/01/18 08:08 Dose: 81 mg Atorvastatin Calcium (Lipitor) 40 mg PO DAILY [facility] Stop: 08/28/18 08:59 Last Admin: 08/01/18 08:08 Dose: 40 mg Carvedilol (Coreg) 12.5 mg PO BID [facility] Stop: 08/29/18 20:59 Last Admin: 08/01/18 08:09 Dose: 12.5 mg Cyanocobalamin (Vitamin B-12) 500 mcg PO QAM [facility] Stop: 08/31/18 08:59 Last Admin: 08/01/18 08:09 Dose: 500 mcg Dextrose (Dextrose 50%) 25 - 50 ml IV UD PRN; Protocol PRN Reason: Hypoglycemia Protocol Stop: 08/27/18 22:13 Fish Oil ([place]-3 (Purified Fish Oil)) 1 gm PO DAILY [facility] Stop: 08/28/18 08:59 Last Admin: 08/01/18 08:08 Dose: 1 gm Furosemide (Lasix) 20 mg PO QAM [facility] Stop: 08/28/18 12:14 Last Admin: 07/30/18 08:05 Dose: 20 mg Glucagon (Glucagen) 1 mg SQ UD PRN; Protocol PRN Reason: Hypoglycemia Protocol Stop: 08/27/18 22:13 Glucosamine Sulfate (Glucosamine Sulfate) 1,500 mg PO DAILY [facility] Stop: 08/28/18 08:59 Last Admin: 08/01/18 08:10 Dose: 1,500 mg Glucose (Glucose 40%) 15 - 30 gm PO UD PRN; Protocol PRN Reason: Hypoglycemia Protocol Stop: 08/27/18 22:13 Glucose (Dex4 Glucose) 4 - 8 tabs PO UD PRN; Protocol PRN Reason: Hypoglycemia Protocol Stop: 08/27/18 22:13 Furosemide 20 mg/ Syringe 2 mls @ 4 mls/min IV QAM [facility] Stop: 08/29/18 08:59 Last Admin: 08/01/18 09:58 Dose: 4 mls/min Insulin Aspart (Novolog Flexpen) 0 units SC ACHS [facility] Stop: 08/27/18 22:59 Last Admin: 08/01/18 08:11 Dose: 8 units Insulin Glargine (Lantus Solostar Pen) 20 units SC BID [facility] Stop: 08/30/18 20:59 Last Admin: 08/01/18 08:10 Dose: 20 units Magnesium Hydroxide (Milk Of Magnesia) 30 ml PO Q12H PRN PRN Reason: Constipation Stop: 08/27/18 22:13 Magnesium Oxide (Mag-Ox) 400 mg PO BID [facility] Stop: 08/29/18 08:59 Last Admin: 08/01/18 08:08 Dose: 400 mg Miscellaneous (Carbohydrates For Hypoglycemia) 15 - 30 gm PO UD PRN PRN Reason: Hypoglycemia Treatment Stop: 08/27/18 22:13 Nitroglycerin (Nitrostat) 0.4 mg SL UD PRN PRN Reason: Chest Pain Stop: 08/27/18 22:13 Pantoprazole Sodium (Protonix) 40 mg PO DAILY [facility] Stop: 08/28/18 08:59 Last Admin: 08/01/18 08:09 Dose: 40 mg Polyethylene Glycol (Miralax Powder Packet) 17 gm PO DAILY PRN PRN Reason: Constipation Stop: 08/27/18 22:13 Sacubitril/Valsartan (Entresto 49/51mg) 1 tab PO BID [facility] Stop: 08/30/18 08:59 Last Admin: 08/01/18 08:10 Dose: 1 tab Thiamine HCl (Vitamin B-1) 200 mg PO BID [facility] Stop: 08/29/18 08:59 Last Admin: 08/01/18 08:09 Dose: 200 mg Vitamin D (Vitamin D3) 1,000 units PO DAILY [facility] Stop: 08/28/18 08:59 Last Admin: 02/02/19 08:09 Dose: 1,000 units _ (1) Mitral regurgitation Cardiac valve disease etiology: etiology unspecified Qualified Code(s): I34.0 - Nonrheumatic mitral (valve) insufficiency (2) Atrial flutter Atrial flutter type: unspecified Qualified Code(s): I48.92 - Unspecified atrial flutter
[2018-08-03 18:06] LABS: Albumin 3.9 G/DL (3.8-4.8); Alpha 1 Globulin 0.2 G/DL (0.2-0.3); Alpha 2 Globulin 0.7 G/DL (0.5-0.9); Beta-1-Globulin 0.4 G/DL (0.4-0.6); Beta-2-Globulin 0.3 G/DL (0.2-0.5); Gamma Globulin 0.6 G/DL (0.8-1.7); Monoclonal Protein Band 1 DNR G/DL (NOT DETECTED); Monoclonal Protein Band 2 DNR G/DL (NOT DETECTED); Monoclonal Protein Band 3 DNR G/DL (NOT DETECTED); Total Protein 6.2 G/DL (6.2-8.3)
--- NOTE | 2018-08-08 20:26 | Discharge Summary ---
Date of Service date of admission - 07/28/2018 date of discharge - 08/01/2018 Admission HPI Per Admitting Provider 63 y/o male with history of HTN, DM II, gout, ETOH abuse, GERD, and recently diagnosed systolic CHF with atrial flutter. Pt presents with a chief c/o SOB and chest tightness. The patient was hospitalized with new-onset atrial flutter with CHF from 07/15/18 - 07/18/18. During that stay he was started on metoprolol and eliquis. He was not sent home on diuretics. Left heart catheterization during that stay was negative for obstructive coronary disease and no aortic stenosis. Echo done during that stay showed Ejection fraction 35- 40%, moderate global hypokinesis of left ventricle, right ventricular systolic function mildly reduced, moderate to severe mitral regurgitation, and IVC mildly dilated. After discharge from the hospital he says he has not felt well since being home. Endorses dyspnea on exertion, orthopnea, paroxysmal nocturnal dyspnea, chest tightness, dry cough. Says he has lost weight and denies weight gain. Has been taking his medicines as directed. Significant other Linda is in the room and says she has wanted him to return to the hospital but he has refused until now. Because of increasing shortness of breath and weakness he came in. Principal Diagnosis acute/chronic systolic CHF Discharge Exam Constitutional well developed and well nourished; no acute distress ENMT external ear and nose normal, oropharynx normal Respiratory normal respiratory effort, lungs clear to auscultation Auscultation: no rales and no wheezes Cardiovascular Rate/Rhythm: regular rate; + abnormal rhythm (irregular) Heart Sounds: normal S1, normal S2 and + murmur (1/6 LLSB) Vessels: posterior tibial pulses present and dorsalis pedis pulses present; no JVD Extremities: no edema Gastrointestinal (Abdomen) normal bowel sounds, soft, nontender, no hepatosplenomegaly Psychiatric A+Ox3, euthymic affect Discharge Data Allergies Allergy/AdvReac Type Severity Reaction Status Date / Time No Known Allergies Allergy Unverified 07/28/18 19:08 Consultations [facility] Procedures Performed 1. echo - * EF 25-30% * dilated IVC * moderate pulmonary HTN * severe MR * ?mass on mitral valve vs focal area of calcification 2. venous doppler, left leg - negative for DVT. Hospital Course (1) Acute on chronic systolic heart failure: The patient was diuresed during his stay with at least 4 liters net negative. Discharge weight was 114.9kg. He was seen in consult by cardiology. His metoprolol was changed to coreg twice daily for his CHF as well as a. flutter rate control. He was continued on his entresto. At discharge he was transitioned to lasix 40mg once daily. He was given considerable counseling on the importance of checking daily weights , adhering to a low salt diet, watching fluid intake, etc. He received CHF instructions as well. During previous admission CAD was ruled out as contributor to his CHF. A. flutter, etoh abuse, etc could all contribute to his CHF. Will need sleep study after d/c in light of chronic snoring. (2) Atrial flutter: Rates were acceptable with beta christophe. He will continue eliquis BID for anticoagulation. The plan is for outpatient cardioversion in 2 weeks from the time of discharge. [facility] will coordinate this. (3) Alcohol abuse: He had no signs/symptoms of DTs/withdrawal during this admission. He will continue thiamine 200 BID by mouth for 1 month postdischarge. He was counseled to abstain from alcohol if possible. He was advised that alcohol could be a contributing factor to his CHF. (4) DM w/o complication type II, uncontrolled: He will start januvia 100mg daily following discharge in addition to his metformin twice daily. (5) Hypertension: Controlled during this stay. (6) Hypercholesterolemia: He will continue on lipitor. (7) Mitral regurgitation: Moderate-severe on echos. Repeat echo this admission with ?mitral valve lesion --- this is probably calcium. Blood cultures were negative making infectious endocarditis unlikely. The mitral regurgitation was felt to be functional in the setting of his moderate-severe CHF. (8) Hypomagnesemia: Replaced and normalized prior to discharge. He will continue magnesium supplement along with potassium supplement after discharge due to chronic lasix use. Total Time Total Time Spent Total Time Spent (In Minutes): 40 Total Time Includes: Examination of the Patient, Discharge Planning, Medication Reconciliation and Communication With Other Providers Discharge Plan Discharge Items Patient Disposition: Home - Self-Care Reason For Visit: Shortness of breath Discharge Diagnosis: Shortness of breath due to congestive heart failure. Atrial flutter. Discharge Goals: Improve disease control Activity: As commented below Activity Comment: no strenuous activities (no gym, shoveling snow, excessive lifting at work) Lifting: No more than 25 pounds Sexual Activity: Wait until after follow-up appointment Exercise/Sports: Wait until after follow-up appointment Driving/Machine Use: No limitations Non-emergency contact: Primary Care Provider and Diet Counselor Call non-emergency contact if: you have any medication questions and your symptoms worsen Follow-up/Referrals: Edis Mckeon MD [Physician] - (see Dr. Mckeon, Crystal GONZALEZ, or any other cardiology provider within 1 week of discharge ) Wendi Alva, [Primary Care Provider] - 08/06/18 9:40 am (Please, follow up with Dr. Wendi Alva on August 06 at 9:40 am. *This office is located in [place] next to [address]. If you need to change this appointment, call the office at [phone].) Diet: Carb Consistent or DM2 and Low Sodium (2gm) Fluids: 1800ml (7 cups) Addtl Provider Instructions: From Sandip Walden - Hospitalist - You were admitted for shortness of breath. This was due to fluid build-up in the lungs from the congestive heart failure. Your a. flutter was also poorly controlled. This contributes to the shortness of breath as well. You improved nicely with diuretics and several changes in your heart medications. The fluid in the lungs is now gone. Your weight today - 08/01/2018 - was 252.7 pounds. At this time we recommend - 1. Congestive heart failure medications - * STOP your losartan * STOP your metoprolol xl * START carvedilol 12.5mg twice a day; first dose TONIGHT * START furosemide (lasix) water pill, 40mg daily in the morning; start TOMORROW morning, 08/02/18 * TAKE a potassium and magnesium supplement * START Entresto (sacubitril-valsartan) 1 tablet TWICE A DAY; start this TONIGHT 2. Congestive heart failure additional instructions - Call 911 and go to the Emergency Room if: * You have tightness or pain in your chest that does not go away with rest or Nitroglycerin * You are very short of breath even with rest Call your doctor if any of the following symptoms or problems start or get worse: * Shortness of breath or difficulty breathing * Wake up at night short of breath * Chest pain * Cough * Swelling of your hands, fee, or legs * More fatigued or tired with your normal activity * Palpitations - sudden fast heart beats WEIGHT * Weigh yourself every morning after using the bathroom. * Use the same scale. * Wear the same amount of clothing. * Write your weight down on your chart. * Call your doctor if you gain more than 2-3 pounds in 1-2 days. This is typically a sign of fluid retention from your congestive heart failure. MEDICATIONS * Use this discharge instruction sheet for instructions. * Take your medications at the time your doctor ordered. * Do not skip a dose of your medicines. * If you miss a dose of medicine, take as soon as possible, but DO NOT DOUBLE A DOSE. * Read your medicine information when you get home. * Know all of the side effects of your medicine. * Call your doctor's office if you have any side effects. * Be sure all of your doctors know what medicine and herbs you take (including cold, flu, and herbal medicine). * Pain Medicine: If you do not get relief from your pain, please call your doctor for help. * Please stop the meloxicam for your arthritis pain. This medication can cause fluid retention. Do not take smts-voc-fyrhaoy motrin, ibuprofen, etc as these, too, can cause fluid retention. Tylenol is ok. Take the following with you to your follow-up doctor appointments: * Weight Chart * Medication List * List of questions Do not drink excessive alcohol, beer or wine. 3. Diabetes - * INCREASE your metformin to 1000mg twice a day * ADD januvia 100mg once daily 4. Alcohol use - * please abstain 100% if at all possible * please take thiamine 200mg once daily for 30 days then stop; prescription provided 5. Consider a sleep study to rule out sleep apnea; if present this can contribute to congestive heart failure. 6. Follow-up - * see Dr. Alva as scheduled * see the [facility] clinic within 1 week 7. Return to [facility] if - * you have fevers over 100.5 degrees * you have worsening shortness of breath * you have severe dizziness or lightheadedness * your weight is rising rapidly * any other concerns Prescriptions: New carvedilol 12.5 mg Tablet 12.5 mg PO BID Qty: 60 RF: 2 sacubitril-valsartan [Entresto] 49-51 mg Tablet 1 tab PO BID Qty: 60 RF: 2 thiamine HCl (vitamin B1) [Vitamin B-1] 100 mg Tablet 200 mg PO DAILY Qty: 60 RF: 0 furosemide 40 mg tablet 40 mg PO QAM Qty: 30 RF: 2 magnesium oxide 400 mg (241.3 mg magnesium) Tablet 400 mg PO DAILY Qty: 30 RF: 2 sitagliptin [Januvia] 100 mg tablet 100 mg PO DAILY Qty: 30 RF: 2 metformin 1,000 mg tablet 1,000 mg PO BID Qty: 60 RF: 2 potassium chloride 10 mEq tablet extended release 10 meq PO DAILY Qty: 30 RF: 2 Continue atorvastatin 40 mg tablet 40 mg PO DAILY RF: 0 glucosamine sulfate [Glucosamine] 500 mg Tablet 1,500 mg PO DAILY RF: 0 cyanocobalamin (vitamin B-12) [Vitamin B-12] 250 mcg Tablet 500 mcg PO DAILY RF: 0 aspirin 81 mg Tablet,Delayed Release (Dr/Ec) 81 mg PO DAILY RF: 0 omeprazole 20 mg Capsule,Delayed Release(Dr/Ec) 20 mg PO DAILY RF: 0 allopurinol 300 mg tablet 300 mg PO DAILY RF: 0 omega-3 fatty acids-fish oil [Fish Oil] 360-1,200 mg Capsule 1 cap PO DAILY RF: 0 apixaban [Eliquis] 5 mg Tablet 5 mg PO BID 30 Days Qty: 60 RF: 3 cholecalciferol (vitamin D3) [Vitamin D3] 1,000 unit Tablet 1,000 unit PO DAILY RF: 0 Discontinued meloxicam 7.5 mg tablet 7.5 mg PO DAILY RF: 0 losartan 100 mg tablet 100 mg PO DAILY RF: 0 metoprolol succinate 50 mg tablet extended release 24 hr 50 mg PO BID RF: 0 Stand-Alone Forms: [facility] Discharge Orders: Discharge Order (Routine); Ordered 08/01/18 Ordered By: Sandip Walden Admission Data Admit Date/Time: 07/31/18 17:14 Attending Provider: Sandip Walden Admit Provider: Stephanie Mauro Primary Care Provider: Wendi Alva Other Providers: Edis Mckeon Service: Telemetry Other Interventions: Discharge Summary Assessment (RN) Last Done: 08/01/18 13:00 Pending Studies at Discharge: Yes Studies:: labs for congestive heart failure DC Date/Time DO NOT enter until pt leaves facility: 08/01/18 13:17
== END 2018-08-01 13:17 | disposition home or self-care (01) | DRG 292 ==
LOC: 2S 16:44 → ED 16:44 → SUATTDRO 20:56 → 2S 21:26
DX: Z79.01 Long term (current) use of anticoagulants; Z79.1 Long term (current) use of non-steroidal anti-inflammatories (NSAID); I11.0 Hypertensive heart disease with heart failure; I34.0 Nonrheumatic mitral (valve) insufficiency; Z23 Encounter for immunization; K21.9 Gastro-esophageal reflux disease without esophagitis; E78.00 Pure hypercholesterolemia, unspecified; Z79.899 Other long term (current) drug therapy; I42.8 Other cardiomyopathies; Z79.82 Long term (current) use of aspirin; E78.5 Hyperlipidemia, unspecified; Z87.891 Personal history of nicotine dependence; M10.9 Gout, unspecified; F10.188 Alcohol abuse with other alcohol-induced disorder; M79.662 Pain in left lower leg; I48.92 Unspecified atrial flutter; E11.65 Type 2 diabetes mellitus with hyperglycemia; Z79.84 Long term (current) use of oral hypoglycemic drugs; I50.23 Acute on chronic systolic (congestive) heart failure